=== PATIENT | male | born 1965 ===

== ENCOUNTER 2017-05-05 23:23 | Inpatient (IN) | payer BC ==
[2017-05-06] MEDS: SOD CHLORIDE 0.9% 1,000 ML IV ×5 (00:05→07:45)
[2017-05-06] MEDS: SODIUM CHLORIDE 0.9% 1L BAG IV* (00:05)
[2017-05-06 00:21] LABS: ABNORMAL IP MESSAGE 1; HEMATOCRIT 17.6 % (42.0-52.0); MEAN CORPUSCULAR HEMOGLOBIN 29.9 pg (29.0-33.0); MEAN CORPUSCULAR VOLUME 90.7 fl (82.0-101.0); MEAN PLATELET VOLUME 9.6 fl (7.4-10.4); PLATELET COUNT 58 10^3/UL (140-415); POSITIVE DIFF @See below; RED BLOOD COUNT 1.94 10^6/ul (4.70-6.10); RED CELL DISTRIBUTION WIDTH 17.1 % (11.5-14.5)
[2017-05-06 00:21] LABS: WHITE BLOOD COUNT 0.4 10^3/ul (4.8-10.8)
[2017-05-06 00:28] LABS: ADD MAN DIFF? YES; HEMOGLOBIN 5.8 g/dl (14.0-18.0)
[2017-05-06 00:29] LABS: PATH REVIEW? YES
[2017-05-06] MEDS: AZTREONAM 1 GM/NS (PMX) 50 ML IVPB (00:30)
[2017-05-06 00:39] LABS: ALANINE AMINOTRANSFERASE 82 IU/L (13-69); ALBUMIN 3.2 g/dl (3.3-4.9); ALBUMIN/GLOBULIN RATIO 1.18; ALKALINE PHOSPHATASE 108 IU/L (42-121); ANION GAP 13 (8-16); ASPARTATE AMINO TRANSFERASE 88 IU/L (15-46); BILIRUBIN,INDIRECT 1.9 mg/dl (0-1.1); BILIRUBIN,TOTAL 1.9 mg/dl (0.2-1.3); BLOOD UREA NITROGEN 24 mg/dl (7-20); CALCIUM 9.1 mg/dl (8.4-10.2); CARBON DIOXIDE 20 mmol/L (21-31); CHLORIDE 104 mmol/L (97-110); CREATININE 0.84 mg/dl (0.61-1.24); GLUCOSE 170 mg/dl (70-220); POTASSIUM 3.2 mmol/L (3.5-5.1); SODIUM 134 mmol/L (135-144); TOTAL PROTEIN 5.9 g/dl (6.1-8.1)
[2017-05-06 00:46] LABS: INR 1.02; PROTIME 13.5 Sec (11.9-14.9); PT RATIO 1.1
[2017-05-06 00:47] LABS: PARTIAL THROMBOPLASTIN TIME 22.5 Sec (25.0-35.0)
[2017-05-06 00:50] LABS: TROPONIN-I 0.047 ng/ml (0.00-0.12)
[2017-05-06 00:56] LABS: LACTIC ACID 3.3 mmol/L (0.5-2.0)
[2017-05-06] MEDS: VANCOMYCIN 1 GM (PMX) 250 ML IVPB (01:00)
[2017-05-06] MEDS: IBUPROFEN 600 MG TAB PO (01:16)
[2017-05-06] MEDS ORDERED: LORAZEPAM 2 MG INJ IV (01:30)
[2017-05-06 01:35] LABS: ANISOCYTOSIS 3+ (0-0); ERYTHROBLAST% (NRBC) (M) 2 % (0-0); LYMPHOCYTES #M 0.4 10^3/ul (0.8-2.9); LYMPHOCYTES % (M) 100 % (15-51); MICROCYTOSIS 3+ (0-0); PLATELET ESTIMATE DECREASED; POIKILOCYTOSIS 2+ (0-0); POLYCHROMASIA 3+ (0-0); SMUDGE%M 4 % (0-0)
[2017-05-06] MEDS: NORepinephrine 8MG/250 ML (PMX 250 ML IV ×3 (02:10→10:56)
[2017-05-06] MEDS ORDERED: PROPOFOL 100 ML (02:11)
[2017-05-06] MEDS ORDERED: LORAZEPAM 2 MG INJ (02:22)
[2017-05-06] MEDS ORDERED: VANCOMYCIN IV PER PHARMACY XX (02:30)
[2017-05-06 03:25] LABS: LACTIC ACID 6.5 mmol/L (0.5-2.0)
[2017-05-06] MEDS: IOHEXOL 350MG/ML 50 ML BTL (03:31)
[2017-05-06] MEDS: IOHEXOL 100 ML (03:32)
[2017-05-06] MEDS: SOD CHLORIDE 0.9% 100 ML (03:32)
[2017-05-06] MEDS ORDERED: PHENYLephrine 40 MG in DEXTROSE 5% 496 ML IV (04:00)
[2017-05-06] MEDS: PROPOFOL 100 ML IV ×5 (04:11→20:12)
[2017-05-06] MEDS: SOD CHLORIDE 0.9% 500 ML IV (04:30)
[2017-05-06] MEDS ORDERED: PROPOFOL 100 ML IV (04:30)
[2017-05-06] MEDS: POTASSIUM CHLORIDE 50 ML IVPB ×4 (05:42→09:17)
[2017-05-06 05:44] LABS: HEMATOCRIT 20.2 % (42.0-52.0); HEMOGLOBIN 7.1 g/dl (14.0-18.0)
[2017-05-06 05:47] LABS: RETICULOCYTE RBC 1.87
[2017-05-06 05:47] LABS: RETICULOCYTE COUNT # 0.016 X10^6 (0.020-0.110); RETICULOCYTE COUNT % 0.9 % (0.5-1.5)
[2017-05-06 05:59] LABS: AADO2 Arterial 184.2 mmHg (7.0-24.0); Allen Test ACCEPTAB; Arterial Base Excess -8.7 mmol/L (-3.0-3); Arterial COHb 0.3 % (0.0-3.0); Arterial Fraction of Oxyhgb 97.5 % (93.0-99.0); Arterial HCO3 14.1 mmol/L (22.0-26.0); Arterial MetHb 1.2 % (0.0-1.5); Arterial Total Hemglobin 7.9 g/dl (12.0-18.0); Arterial pCO2 20.8 mmhg (35-45); MODE VENT - AC; Site Left Radial
[2017-05-06 06:18] LABS: LACTATE DEHYDROGENASE 1917 IU/L (313-618)
[2017-05-06] MEDS: MIDAZOLAM (DRIP) 50 mg/50 mL 50 ML IV ×3 (06:33→16:58)
[2017-05-06 06:56] LABS: LACTIC ACID 3.6 mmol/L (0.5-2.0)
[2017-05-06 07:15] LABS: ADD UMIC YES; UR AMORPHOUS CRYSTAL FEW /HPF (NONE SEEN); UR ASCORBIC ACID NEGATIVE (NEGATIVE); UR BILIRUBIN (Dip) NEGATIVE (NEGATIVE); UR BLOOD (Dip) 1+ mg/dL (NEGATIVE); UR CLARITY CLOUDY (CLEAR); UR COLOR AMBER (YELLOW); UR GLUCOSE (Dip) NEGATIVE (NEGATIVE); UR GRANULAR CAST FEW /HPF (NONE SEEN); UR KETONES (Dip) NEGATIVE (NEGATIVE); UR LEUKOCYTE ESTERASE (Dip) NEGATIVE Leu/ul (NEGATIVE); UR NITRITE (Dip) NEGATIVE (NEGATIVE); UR RBC 2 /HPF (0-5); UR SPECIFIC GRAVITY (Dip) 1.029 (1.003-1.030); UR TOTAL PROTEIN (Dip) 2+ mg/dl (NEGATIVE); UR UROBILINOGEN (Dip) NEGATIVE (NEGATIVE); UR WBC 2 /HPF (0-5)
[2017-05-06] MEDS ORDERED: POTASSIUM CHLORIDE 0 ML (07:43)
[2017-05-06] MEDS: PANTOPRAZOLE 40 MG INJ IV (07:45)
[2017-05-06] MEDS: ACETAMINOPHEN 1000MG/100ML IV 100 ML IVPB (08:46)
[2017-05-06] MEDS ORDERED: AZTREONAM 2 GM in DEXTROSE 5% 100 ML IVPB (09:00)
[2017-05-06 09:13] LABS: ADD MAN DIFF? NO
[2017-05-06] MEDS: VANCOMYCIN 1.25 GM in SOD CHLORIDE 0.45% 250 ML IVPB ×2 (09:34→21:09)
[2017-05-06 09:51] LABS: AADO2 Arterial 139.1 mmHg (7.0-24.0); Allen Test ACCEPTAB; Arterial Base Excess -12.7 mmol/L (-3.0-3); Arterial Blood Gas Oxygen Sat 98.3 mmHG (95.0-98.0); Arterial COHb 0.3 % (0.0-3.0); Arterial Fraction of Oxyhgb 96.4 % (93.0-99.0); Arterial HCO3 12.1 mmol/L (22.0-26.0); Arterial MetHb 1.6 % (0.0-1.5); Arterial Total Hemglobin 8.4 g/dl (12.0-18.0); Arterial pCO2 24.1 mmhg (35-45); MODE VENT - AC; Site Left Radial
[2017-05-06 10:02] LABS: ABNORMAL IP MESSAGE 1; LYMPHOCYTES # 0.5 10^3/ul (0.8-2.9); MONOCYTES % 1.9 % (0.0-11.0); RED BLOOD COUNT 2.41 10^6/ul (4.70-6.10)
[2017-05-06 10:02] LABS: WHITE BLOOD COUNT 0.5 10^3/ul (4.8-10.8)
[2017-05-06 10:05] LABS: HEMATOCRIT 21.4 % (42.0-52.0); HEMOGLOBIN 7.8 g/dl (14.0-18.0); LYMPHOCYTES % 96.2 % (15.0-51.0); MEAN CORPUSCULAR HEMOGLOBIN 32.4 pg (29.0-33.0); MEAN CORPUSCULAR HGB CONC 36.4 g/dl (32.0-37.0); MEAN CORPUSCULAR VOLUME 88.8 fl (82.0-101.0); MEAN PLATELET VOLUME 10.5 fl (7.4-10.4); NEUTROPHILS % 1.9 % (39.0-77.0); NUCLEATED RED BLOOD CELLS% 7.5 /100WBC (0.0-0.0); PLATELET COUNT 58 10^3/UL (140-415); POSITIVE DIFF @See below; RED CELL DISTRIBUTION WIDTH 15.9 % (11.5-14.5)
[2017-05-06 10:07] LABS: LACTIC ACID 3.9 mmol/L (0.5-2.0)
[2017-05-06] MEDS: CEFEPIME 2GM/50 ML (PMX) 50 ML IVPB (11:41)
[2017-05-06 11:49] LABS: ALANINE AMINOTRANSFERASE 142 IU/L (13-69); ALBUMIN 3.5 g/dl (3.3-4.9); ALBUMIN/GLOBULIN RATIO 1.02; ALKALINE PHOSPHATASE 79 IU/L (42-121); ANION GAP 18 (8-16); ASPARTATE AMINO TRANSFERASE 390 IU/L (15-46); BLOOD UREA NITROGEN 32 mg/dl (7-20); CARBON DIOXIDE 14 mmol/L (21-31); CHLORIDE 113 mmol/L (97-110); CREATININE 1.11 mg/dl (0.61-1.24); GLUCOSE 114 mg/dl (70-220); SODIUM 140 mmol/L (135-144); TOTAL PROTEIN 6.9 g/dl (6.1-8.1)
[2017-05-06] MEDS: MEROPENEM 1 GM/50ML(PMX) 50 ML IVPB ×2 (12:09→22:20)
[2017-05-06] MEDS: LACTATED RINGER'S 1,000 ML IV ×3 (12:12→20:17)
[2017-05-06] MEDS: HYDROCORTISONE 100 MG INJ IV ×2 (13:20→21:30)
[2017-05-06] MEDS: FENTAnyl (DRIP) 1000 mcg/100mL 100 ML IV (13:21)
[2017-05-06 14:19] LABS: WHITE BLOOD COUNT 0.5 10^3/ul (4.8-10.8)
[2017-05-06 14:19] LABS: ABNORMAL IP MESSAGE 1; HEMATOCRIT 20.8 % (42.0-52.0); HEMOGLOBIN 7.8 g/dl (14.0-18.0); MEAN CORPUSCULAR VOLUME 90.4 fl (82.0-101.0); MEAN PLATELET VOLUME 9.9 fl (7.4-10.4); NUCLEATED RED BLOOD CELLS% 4.3 /100WBC (0.0-0.0); PLATELET COUNT 39 10^3/UL (140-415); POSITIVE DIFF @See below; RED CELL DISTRIBUTION WIDTH 16.5 % (11.5-14.5)
[2017-05-06 14:25] LABS: ADD MAN DIFF? YES
[2017-05-06] MEDS: LACTATED RINGER'S 500 ML IV ×2 (14:41→15:01)
[2017-05-06 14:43] LABS: LACTIC ACID 5.1 mmol/L (0.5-2.0)
[2017-05-06] MEDS ORDERED: LACTATED RINGER'S 1,000 ML IV (15:00)
[2017-05-06 15:11] LABS: LYMPHOCYTES # 0.5 10^3/ul (0.8-2.9); LYMPHOCYTES #M 0.4 10^3/ul (0.8-2.9); LYMPHOCYTES % (M) 99 % (15-51)
[2017-05-06 15:14] LABS: ANISOCYTOSIS 3+ (0-0)
[2017-05-06 15:15] LABS: MEAN CORPUSCULAR HEMOGLOBIN 31.1 pg (29.0-33.0); MEAN CORPUSCULAR HGB CONC 35.3 g/dl (32.0-37.0); SPHEROCYTES MODERATE (0-0)
[2017-05-06] MEDS: FILGRASTIM 480 MCG INJ SC (16:57)
[2017-05-06] MEDS: PHENYLephrine 20MG IN 250 ML 250 ML IV (20:00)
[2017-05-06 21:02] LABS: WHITE BLOOD COUNT 0.4 10^3/ul (4.8-10.8)
[2017-05-06 21:02] LABS: ABNORMAL IP MESSAGE 1; MEAN CORPUSCULAR VOLUME 88.1 fl (82.0-101.0); MEAN PLATELET VOLUME 12.6 fl (7.4-10.4); NUCLEATED RED BLOOD CELLS% 4.8 /100WBC (0.0-0.0); PLATELET COUNT 35 10^3/UL (140-415); POSITIVE DIFF @See below; RED BLOOD COUNT 2.26 10^6/ul (4.70-6.10); RED CELL DISTRIBUTION WIDTH 16.8 % (11.5-14.5)
[2017-05-06 21:13] LABS: ADD MAN DIFF? YES
[2017-05-06 21:36] LABS: ALANINE AMINOTRANSFERASE 269 IU/L (13-69); ALBUMIN 3.5 g/dl (3.3-4.9); ALBUMIN/GLOBULIN RATIO 1.09; ALKALINE PHOSPHATASE 94 IU/L (42-121); ANION GAP 20 (8-16); ASPARTATE AMINO TRANSFERASE 695 IU/L (15-46); BILIRUBIN,INDIRECT 0.8 mg/dl (0-1.1); BILIRUBIN,TOTAL 6.6 mg/dl (0.2-1.3); BLOOD UREA NITROGEN 28 mg/dl (7-20); CALCIUM 8.7 mg/dl (8.4-10.2); CARBON DIOXIDE 13 mmol/L (21-31); CHLORIDE 116 mmol/L (97-110); GLUCOSE 152 mg/dl (70-220); POTASSIUM 4.8 mmol/L (3.5-5.1); SODIUM 144 mmol/L (135-144); TOTAL PROTEIN 6.7 g/dl (6.1-8.1)
[2017-05-06 21:51] LABS: ANISOCYTOSIS 3+ (0-0); ERYTHROBLAST% (NRBC) (M) 8 % (0-0); LYMPHOCYTES #M 0.3 10^3/ul (0.8-2.9); LYMPHOCYTES % (M) 99 % (15-51); MICROCYTOSIS 3+ (0-0); MONOCYTES % (M) 1 % (0-11); PLATELET ESTIMATE SIG DECREASED; POIKILOCYTOSIS 3+ (0-0); POLYCHROMASIA 1+ (0-0); SMUDGE%M 51 % (0-0); TEAR DROP CELLS 1+ (0-0)
[2017-05-06 22:11] LABS: HEMOGLOBIN 7.4 g/dl (14.0-18.0); MEAN CORPUSCULAR HEMOGLOBIN 31.2 pg (29.0-33.0)
[2017-05-06 22:12] LABS: MEAN CORPUSCULAR HGB CONC 35.2 g/dl (32.0-37.0)
[2017-05-06] MEDS: PHENYLephrine 40 MG in DEXTROSE 5% 496 ML IV (23:45)
[2017-05-07] MEDS: PROPOFOL 100 ML IV ×2 (02:31→06:53)
[2017-05-07] MEDS: MIDAZOLAM (DRIP) 50 mg/50 mL 50 ML IV ×2 (02:44→15:25)
[2017-05-07] MEDS: LACTATED RINGER'S 1,000 ML IV ×4 (02:48→19:58)
[2017-05-07 05:17] LABS: AADO2 Arterial 48.2 mmHg (7.0-24.0); Allen Test ACCEPTAB; Arterial Base Excess -12.3 mmol/L (-3.0-3); Arterial Blood Gas Oxygen Sat 98.6 mmHG (95.0-98.0); Arterial COHb 0.6 % (0.0-3.0); Arterial Fraction of Oxyhgb 96.9 % (93.0-99.0); Arterial HCO3 11.4 mmol/L (22.0-26.0); Arterial MetHb 1.1 % (0.0-1.5); Arterial Total Hemglobin 7.2 g/dl (12.0-18.0); Arterial pCO2 19.6 mmhg (35-45); MODE VENT - AC; Site Right Radial
[2017-05-07 05:46] LABS: PHOSPHORUS 5.3 mg/dl (2.5-4.9)
[2017-05-07 05:46] LABS: MAGNESIUM 1.3 mg/dl (1.7-2.5)
[2017-05-07] MEDS: HYDROCORTISONE 100 MG INJ IV ×3 (05:51→22:08)
[2017-05-07] MEDS: PANTOPRAZOLE 40 MG INJ IV (05:51)
[2017-05-07] MEDS: MEROPENEM 1 GM/50ML(PMX) 50 ML IVPB ×3 (05:51→22:08)
[2017-05-07 05:57] LABS: LACTIC ACID 5.9 mmol/L (0.5-2.0)
[2017-05-07] MEDS: FENTAnyl (DRIP) 1000 mcg/100mL 100 ML IV (06:16)
[2017-05-07 06:32] LABS: ADD UMIC YES; UR ASCORBIC ACID NEGATIVE (NEGATIVE); UR BACTERIA FEW /HPF (NONE SEEN); UR BILIRUBIN (Dip) NEGATIVE (NEGATIVE); UR BLOOD (Dip) 3+ mg/dL (NEGATIVE); UR CLARITY CLEAR (CLEAR); UR COLOR AMBER (YELLOW); UR GLUCOSE (Dip) NEGATIVE (NEGATIVE); UR KETONES (Dip) NEGATIVE (NEGATIVE); UR LEUKOCYTE ESTERASE (Dip) NEGATIVE Leu/ul (NEGATIVE); UR NITRITE (Dip) NEGATIVE (NEGATIVE); UR RBC 1 /HPF (0-5); UR SPECIFIC GRAVITY (Dip) 1.006 (1.003-1.030); UR TOTAL PROTEIN (Dip) 2+ mg/dl (NEGATIVE); UR UROBILINOGEN (Dip) NEGATIVE (NEGATIVE); UR WBC 1 /HPF (0-5)
[2017-05-07] MEDS: ALBUMIN HUMAN 25% 100 ML IV ×2 (06:48→18:21)
[2017-05-07] MEDS ORDERED: MAGNESIUM SULFATE 1 GM/D5W 100 ML (07:31)
[2017-05-07] MEDS ORDERED: PHENYLephrine 20MG IN 250 ML 250 ML (07:42)
[2017-05-07 08:25] LABS: HEPATITIS B SURFACE ANTIGEN NEGATIVE (NEGATIVE)
[2017-05-07 08:26] LABS: ANION GAP 21 (8-16); BLOOD UREA NITROGEN 26 mg/dl (7-20); CALCIUM 8.8 mg/dl (8.4-10.2); CARBON DIOXIDE 11 mmol/L (21-31); CHLORIDE 119 mmol/L (97-110); CREATININE 0.98 mg/dl (0.61-1.24); GLUCOSE 193 mg/dl (70-220); POTASSIUM 4.6 mmol/L (3.5-5.1); SODIUM 146 mmol/L (135-144)
[2017-05-07 08:43] LABS: HEPATITIS B CORE ANTIBODY NEGATIVE (NEGATIVE)
[2017-05-07] MEDS: MAGNESIUM SULFATE 3 GM in DEXTROSE 5% 100 ML IVPB (09:21)
[2017-05-07] MEDS: VANCOMYCIN 1.25 GM in SOD CHLORIDE 0.45% 250 ML IVPB ×2 (09:26→20:59)
[2017-05-07 09:51] LABS: WHITE BLOOD COUNT 0.3 10^3/ul (4.8-10.8)
[2017-05-07 09:51] LABS: ABNORMAL IP MESSAGE 1; HEMATOCRIT 17.6 % (42.0-52.0); MEAN CORPUSCULAR HEMOGLOBIN 30.7 pg (29.0-33.0); MEAN CORPUSCULAR HGB CONC 35.8 g/dl (32.0-37.0); MEAN CORPUSCULAR VOLUME 85.9 fl (82.0-101.0); NUCLEATED RED BLOOD CELLS% 7.4 /100WBC (0.0-0.0); POSITIVE DIFF @See below; RED BLOOD COUNT 2.05 10^6/ul (4.70-6.10); RED CELL DISTRIBUTION WIDTH 16.8 % (11.5-14.5)
[2017-05-07 09:55] LABS: HEPATITIS B SURFACE ANTIBODY POSITIVE (NEGATIVE)
[2017-05-07 09:58] LABS: HEMOGLOBIN 6.3 g/dl (14.0-18.0); PLATELET COUNT 17 10^3/UL (140-415)
[2017-05-07 09:59] LABS: ADD MAN DIFF? YES
[2017-05-07 11:30] LABS: ANISOCYTOSIS 3+ (0-0); ERYTHROBLAST% (NRBC) (M) 4 % (0-0); LYMPHOCYTES #M 0.2 10^3/ul (0.8-2.9); LYMPHOCYTES % (M) 98 % (15-51); METAMYELOCYTES %M 1 % (0-0); MICROCYTOSIS 3+ (0-0); MONOCYTES % (M) 1 % (0-11); MYELOCYTES % (M) 1 % (0-0); PLATELET ESTIMATE SIG DECREASED; POIKILOCYTOSIS 3+ (0-0); POLYCHROMASIA 3+ (0-0); SMUDGE%M 10 % (0-0)
[2017-05-07] MEDS: PHENYLephrine 40 MG in DEXTROSE 5% 496 ML IV ×2 (11:31→19:14)
[2017-05-07 14:24] LABS: ALANINE AMINOTRANSFERASE 680 IU/L (13-69); ALBUMIN 3.1 g/dl (3.3-4.9); ALBUMIN/GLOBULIN RATIO 1.03; ALKALINE PHOSPHATASE 69 IU/L (42-121); ANION GAP 18 (8-16); BILIRUBIN,INDIRECT 0.9 mg/dl (0-1.1); BILIRUBIN,TOTAL 7.4 mg/dl (0.2-1.3); BLOOD UREA NITROGEN 25 mg/dl (7-20); CARBON DIOXIDE 15 mmol/L (21-31); CHLORIDE 115 mmol/L (97-110); CREATININE 0.88 mg/dl (0.61-1.24); GLUCOSE 252 mg/dl (70-220); POTASSIUM 3.9 mmol/L (3.5-5.1); SODIUM 144 mmol/L (135-144); TOTAL PROTEIN 6.1 g/dl (6.1-8.1)
[2017-05-07 14:54] LABS: IMMEDIATE SPIN CROSSMATCH 1 9
[2017-05-07 15:40] LABS: ASPARTATE AMINO TRANSFERASE 1920 IU/L (15-46)
[2017-05-07 15:47] LABS: PATH REVIEW CH
[2017-05-07 16:03] LABS: MAGNESIUM 2.2 mg/dl (1.7-2.5)
[2017-05-07] MEDS: FILGRASTIM 480 MCG INJ SC (17:01)
[2017-05-07 18:21] LABS: AADO2 Arterial 92.1 mmHg (7.0-24.0); Allen Test ACCEPTAB; Arterial Base Excess -8.8 mmol/L (-3.0-3); Arterial Blood Gas Oxygen Sat 96.5 mmHG (95.0-98.0); Arterial COHb 0.3 % (0.0-3.0); Arterial Fraction of Oxyhgb 95.6 % (93.0-99.0); Arterial MetHb 0.6 % (0.0-1.5); Arterial Total Hemglobin 10.8 g/dl (12.0-18.0); Arterial pCO2 26.4 mmhg (35-45); MODE VENT - AC; Site Left Radial
[2017-05-07 21:31] LABS: WHITE BLOOD COUNT 0.2 10^3/ul (4.8-10.8)
[2017-05-07 21:31] LABS: ABNORMAL IP MESSAGE 1; POSITIVE DIFF @See below; RED BLOOD COUNT 2.72 10^6/ul (4.70-6.10)
[2017-05-07 21:32] LABS: HEMATOCRIT 23.3 % (42.0-52.0); MEAN CORPUSCULAR VOLUME 87.3 fl (82.0-101.0)
[2017-05-07 21:33] LABS: MEAN CORPUSCULAR HEMOGLOBIN 30.7 pg (29.0-33.0); MEAN CORPUSCULAR HGB CONC 35.2 g/dl (32.0-37.0); RED CELL DISTRIBUTION WIDTH 15.4 % (11.5-14.5)
[2017-05-07 21:35] LABS: ADD MAN DIFF? YES; PLATELET COUNT 8 10^3/UL (140-415)
[2017-05-07 21:40] LABS: HEMOGLOBIN 8.2 g/dl (14.0-18.0)
[2017-05-07 21:44] LABS: VANCOMYCIN,TROUGH 19.9 ug/ml (10.0-20.0)
[2017-05-07 21:54] LABS: ALANINE AMINOTRANSFERASE 677 IU/L (13-69); ALBUMIN 3.4 g/dl (3.3-4.9); ALBUMIN/GLOBULIN RATIO 1.21; ANION GAP 17 (8-16); BILIRUBIN,INDIRECT 1.1 mg/dl (0-1.1); BLOOD UREA NITROGEN 25 mg/dl (7-20); CALCIUM 8.7 mg/dl (8.4-10.2); CARBON DIOXIDE 17 mmol/L (21-31); CHLORIDE 112 mmol/L (97-110); CREATININE 0.82 mg/dl (0.61-1.24); GLUCOSE 206 mg/dl (70-220); POTASSIUM 3.6 mmol/L (3.5-5.1); SODIUM 142 mmol/L (135-144); TOTAL PROTEIN 6.2 g/dl (6.1-8.1)
[2017-05-07 21:55] LABS: ALKALINE PHOSPHATASE 75 IU/L (42-121)
[2017-05-07 22:04] LABS: ASPARTATE AMINO TRANSFERASE 1498 IU/L (15-46)
[2017-05-07 22:14] LABS: LYMPHOCYTES # 0.2 10^3/ul (0.8-2.9); LYMPHOCYTES #M 0.1 10^3/ul (0.8-2.9); LYMPHOCYTES % (M) 95 % (15-51); MONOCYTES % (M) 5 % (0-11)
[2017-05-08] MEDS: PHENYLephrine 40 MG in DEXTROSE 5% 496 ML IV (00:57)
[2017-05-08 01:05] LABS: TYPE AND SCREEN 1
[2017-05-08] MEDS: FENTAnyl (DRIP) 1000 mcg/100mL 100 ML IV ×2 (01:46→16:03)
[2017-05-08] MEDS: LACTATED RINGER'S 1,000 ML IV ×3 (02:48→22:21)
[2017-05-08] MEDS: PHENYLephrine 160 MG in DEXTROSE 5% 484 ML IV (03:09)
[2017-05-08 04:45] LABS: INR 1.44; PROTIME 17.8 Sec (11.9-14.9); PT RATIO 1.4
[2017-05-08 04:57] LABS: ALBUMIN/GLOBULIN RATIO 1.23; ANION GAP 17 (8-16)
[2017-05-08 05:04] LABS: ALANINE AMINOTRANSFERASE 672 IU/L (13-69); ALBUMIN 3.2 g/dl (3.3-4.9); ALKALINE PHOSPHATASE 75 IU/L (42-121); ASPARTATE AMINO TRANSFERASE 1419 IU/L (15-46); BILIRUBIN,INDIRECT 1.1 mg/dl (0-1.1); BILIRUBIN,TOTAL 8.1 mg/dl (0.2-1.3); BLOOD UREA NITROGEN 23 mg/dl (7-20); CALCIUM 8.7 mg/dl (8.4-10.2); CARBON DIOXIDE 18 mmol/L (21-31); CHLORIDE 111 mmol/L (97-110); CREATININE 0.75 mg/dl (0.61-1.24); GLUCOSE 155 mg/dl (70-220); POTASSIUM 3.1 mmol/L (3.5-5.1); SODIUM 143 mmol/L (135-144); TOTAL PROTEIN 5.8 g/dl (6.1-8.1)
[2017-05-08 05:09] LABS: LACTIC ACID 3.6 mmol/L (0.5-2.0)
[2017-05-08 05:15] LABS: LACTATE DEHYDROGENASE 9076 IU/L (313-618)
[2017-05-08] MEDS: MEROPENEM 1 GM/50ML(PMX) 50 ML IVPB ×3 (05:22→21:14)
[2017-05-08] MEDS: HYDROCORTISONE 100 MG INJ IV ×3 (05:22→21:14)
[2017-05-08] MEDS: PANTOPRAZOLE 40 MG INJ IV (05:22)
[2017-05-08 05:23] LABS: PHOSPHORUS 3.9 mg/dl (2.5-4.9)
[2017-05-08 05:23] LABS: MAGNESIUM 1.8 mg/dl (1.7-2.5)
[2017-05-08] MEDS: MIDAZOLAM (DRIP) 50 mg/50 mL 50 ML IV ×2 (06:01→19:58)
[2017-05-08] MEDS: MAGNESIUM SULFATE 2 GM/50 ML 50 ML IVPB (06:01)
[2017-05-08] MEDS: POTASSIUM CHLORIDE 50 ML IVPB ×2 (06:28→08:57)
[2017-05-08 07:34] LABS: ABNORMAL IP MESSAGE 1; HEMATOCRIT 21.9 % (42.0-52.0); MEAN CORPUSCULAR HEMOGLOBIN 30.7 pg (29.0-33.0); MEAN CORPUSCULAR HGB CONC 36.1 g/dl (32.0-37.0); MEAN CORPUSCULAR VOLUME 85.2 fl (82.0-101.0); MEAN PLATELET VOLUME 9.6 fl (7.4-10.4); POSITIVE DIFF @See below; RED BLOOD COUNT 2.57 10^6/ul (4.70-6.10); RED CELL DISTRIBUTION WIDTH 15.8 % (11.5-14.5)
[2017-05-08 07:34] LABS: WHITE BLOOD COUNT 0.2 10^3/ul (4.8-10.8)
[2017-05-08 07:36] LABS: HEMOGLOBIN 7.9 g/dl (14.0-18.0); PLATELET COUNT 50 10^3/UL (140-415)
[2017-05-08 07:37] LABS: ADD MAN DIFF? YES
[2017-05-08 08:31] LABS: AADO2 Arterial 100.8 mmHg (7.0-24.0); Allen Test ACCEPTAB; Arterial COHb 0.3 % (0.0-3.0); Arterial Fraction of Oxyhgb 93.9 % (93.0-99.0); Arterial HCO3 18.4 mmol/L (22.0-26.0); Arterial MetHb 0.9 % (0.0-1.5); Arterial Total Hemglobin 7.6 g/dl (12.0-18.0); Arterial pCO2 27.6 mmhg (35-45); MODE VENT - AC; Site Right Radial
[2017-05-08 09:47] LABS: ANISOCYTOSIS 2+ (0-0); ERYTHROBLAST% (NRBC) (M) 5 % (0-0); GIANT THROMBO% (M) 1 % (0-0); LYMPHOCYTES #M 0.1 10^3/ul (0.8-2.9); LYMPHOCYTES % (M) 99 % (15-51); MICROCYTOSIS 2+ (0-0); PLATELET ESTIMATE SIG DECREASED; POIKILOCYTOSIS 3+ (0-0); POLYCHROMASIA 3+ (0-0); REACTIVE LYMPHOCYTES% (M) 1 % (0-0); SMUDGE%M 16 % (0-0)
[2017-05-08 09:50] LABS: ADD MAN DIFF? NO
[2017-05-08 10:18] LABS: ABNORMAL IP MESSAGE 1; LYMPHOCYTES # 0.1 10^3/ul (0.8-2.9); MONOCYTES % 10.5 % (0.0-11.0); NEUTROPHILS % 15.8 % (39.0-77.0); POSITIVE DIFF @See below
[2017-05-08 10:22] LABS: WHITE BLOOD COUNT 0.2 10^3/ul (4.8-10.8)
[2017-05-08 10:25] LABS: HEMATOCRIT 20.3 % (42.0-52.0); HEMOGLOBIN 7.9 g/dl (14.0-18.0); LYMPHOCYTES % 73.7 % (15.0-51.0); MEAN CORPUSCULAR HEMOGLOBIN 32.6 pg (29.0-33.0); MEAN CORPUSCULAR HGB CONC 38.9 g/dl (32.0-37.0); MEAN CORPUSCULAR VOLUME 83.9 fl (82.0-101.0); MEAN PLATELET VOLUME 11.9 fl (7.4-10.4); RED BLOOD COUNT 2.42 10^6/ul (4.70-6.10); RED CELL DISTRIBUTION WIDTH 15.8 % (11.5-14.5)
[2017-05-08 10:27] LABS: PLATELET COUNT 30 10^3/UL (140-415)
[2017-05-08] MEDS: FUROSEMIDE 40 MG INJ IV (12:22)
[2017-05-08 13:09] LABS: LACTIC ACID 1.7 mmol/L (0.5-2.0)
[2017-05-08 14:17] LABS: HAPTOGLOBIN 331 mg/dL (43-212)
[2017-05-08] MEDS: VANCOMYCIN 750 MG in DEXTROSE 5% 150 ML IVPB (15:12)
[2017-05-08 15:15] LABS: ADD MAN DIFF? NO
[2017-05-08 15:58] LABS: WHITE BLOOD COUNT 0.2 10^3/ul (4.8-10.8)
[2017-05-08 15:58] LABS: ABNORMAL IP MESSAGE 1; HEMATOCRIT 22.1 % (42.0-52.0); LYMPHOCYTES # 0.2 10^3/ul (0.8-2.9); MEAN CORPUSCULAR HEMOGLOBIN 30.8 pg (29.0-33.0); MEAN CORPUSCULAR HGB CONC 36.2 g/dl (32.0-37.0); MONOCYTES % 5.3 % (0.0-11.0); POSITIVE DIFF @See below
[2017-05-08 16:07] LABS: LYMPHOCYTES % 94.7 % (15.0-51.0); MEAN PLATELET VOLUME 13.3 fl (7.4-10.4)
[2017-05-08 16:09] LABS: PLATELET COUNT 29 10^3/UL (140-415)
[2017-05-08] MEDS: FILGRASTIM 480 MCG INJ SC (17:18)
[2017-05-08] MEDS: PROPOFOL 100 ML IV (17:28)
[2017-05-08 18:02] LABS: HEPATITIS C VIRAL ANTIBODY NEGATIVE (NEGATIVE)
[2017-05-08 19:20] LABS: LACTIC ACID 1.9 mmol/L (0.5-2.0)
[2017-05-09 01:03] LABS: LACTIC ACID 1.3 mmol/L (0.5-2.0)
[2017-05-09 01:09] LABS: POTASSIUM 2.1 mmol/L (3.5-5.1)
[2017-05-09 01:26] LABS: MAGNESIUM 1.7 mg/dl (1.7-2.5)
[2017-05-09] MEDS: POTASSIUM CHLORIDE 50 ML IVPB ×7 (02:06→13:06)
[2017-05-09] MEDS: MAGNESIUM SULFATE 3 GM in DEXTROSE 5% 100 ML IVPB (03:42)
[2017-05-09] MEDS: PROPOFOL 100 ML IV ×2 (06:00→18:00)
[2017-05-09] MEDS: PANTOPRAZOLE 40 MG INJ IV (06:07)
[2017-05-09] MEDS: HYDROCORTISONE 100 MG INJ IV ×3 (06:07→21:16)
[2017-05-09] MEDS: MEROPENEM 1 GM/50ML(PMX) 50 ML IVPB ×3 (06:07→21:16)
[2017-05-09 08:29] LABS: AADO2 Arterial 32.8 mmHg (7.0-24.0); Allen Test ACCEPTAB; Arterial Base Excess -0.9 mmol/L (-3.0-3); Arterial Blood Gas Oxygen Sat 98.2 mmHG (95.0-98.0); Arterial COHb 0.3 % (0.0-3.0); Arterial Fraction of Oxyhgb 97.6 % (93.0-99.0); Arterial HCO3 22.7 mmol/L (22.0-26.0); Arterial MetHb 0.3 % (0.0-1.5); Arterial Total Hemglobin 9.3 g/dl (12.0-18.0); Arterial pCO2 33.3 mmhg (35-45); MODE VENT - AC; Site Right Radial
[2017-05-09] MEDS: LACTATED RINGER'S 1,000 ML IV ×2 (08:32→18:35)
[2017-05-09 08:46] LABS: WHITE BLOOD COUNT 0.2 10^3/ul (4.8-10.8)
[2017-05-09 08:46] LABS: ABNORMAL IP MESSAGE 1; HEMATOCRIT 22.3 % (42.0-52.0); HEMOGLOBIN 8.1 g/dl (14.0-18.0); MEAN CORPUSCULAR HEMOGLOBIN 30.6 pg (29.0-33.0); MEAN CORPUSCULAR HGB CONC 36.3 g/dl (32.0-37.0); MEAN CORPUSCULAR VOLUME 84.2 fl (82.0-101.0); MEAN PLATELET VOLUME 10.6 fl (7.4-10.4); POSITIVE DIFF @See below; RED BLOOD COUNT 2.65 10^6/ul (4.70-6.10); RED CELL DISTRIBUTION WIDTH 15.9 % (11.5-14.5)
[2017-05-09 08:51] LABS: PLATELET COUNT 9 10^3/UL (140-415)
[2017-05-09 08:53] LABS: ADD MAN DIFF? YES
[2017-05-09 09:03] LABS: PHOSPHORUS 2.9 mg/dl (2.5-4.9)
[2017-05-09 09:03] LABS: MAGNESIUM 2.6 mg/dl (1.7-2.5)
[2017-05-09 09:07] LABS: LACTIC ACID 1.2 mmol/L (0.5-2.0)
[2017-05-09 09:08] LABS: ALANINE AMINOTRANSFERASE 517 IU/L (13-69); ALBUMIN 2.8 g/dl (3.3-4.9); ALBUMIN/GLOBULIN RATIO 1.03; ALKALINE PHOSPHATASE 98 IU/L (42-121); ANION GAP 13 (8-16); ASPARTATE AMINO TRANSFERASE 496 IU/L (15-46); BILIRUBIN,INDIRECT 1.3 mg/dl (0-1.1); BILIRUBIN,TOTAL 8.9 mg/dl (0.2-1.3); BLOOD UREA NITROGEN 30 mg/dl (7-20); CALCIUM 9.6 mg/dl (8.4-10.2); CARBON DIOXIDE 26 mmol/L (21-31); CHLORIDE 110 mmol/L (97-110); CREATININE 0.79 mg/dl (0.61-1.24); GLUCOSE 170 mg/dl (70-220); POTASSIUM 3.2 mmol/L (3.5-5.1); SODIUM 146 mmol/L (135-144); TOTAL PROTEIN 5.5 g/dl (6.1-8.1)
[2017-05-09] MEDS ORDERED: GLUCAGON 1 MG INJ IM (10:30)
[2017-05-09] MEDS ORDERED: GLUCOSE GEL 15 GRAM TUBE PO ×2 (10:30)
[2017-05-09] MEDS: FUROSEMIDE 20 MG INJ IV (10:37)
[2017-05-09 10:52] LABS: HEMOGLOBIN A1C 5.9 % (0-5.9)
[2017-05-09 11:23] LABS: LACTIC ACID 1.2 mmol/L (0.5-2.0)
[2017-05-09] MEDS: INSULIN ASPART [NOVOLOG] 3 ML PEN SC ×3 (12:00→21:37)
[2017-05-09 12:57] LABS: ANISOCYTOSIS 2+ (0-0); ERYTHROBLAST% (NRBC) (M) 6 % (0-0); GIANT THROMBO% (M) 2 % (0-0); LYMPHOCYTES #M 0.1 10^3/ul (0.8-2.9); LYMPHOCYTES % (M) 95 % (15-51); MONOCYTES % (M) 1 % (0-11); PLATELET ESTIMATE DECREASED; POIKILOCYTOSIS 2+ (0-0); REACTIVE LYMPHOCYTES% (M) 4 % (0-0); ROULEAU 1+ (0-0); SMUDGE%M 17 % (0-0)
[2017-05-09 16:41] LABS: MYCOPLASMA PNEUMONIAE AB (IGG) 0.91
[2017-05-09] MEDS: FILGRASTIM 480 MCG INJ SC (17:46)
[2017-05-09 19:35] LABS: LACTIC ACID 1.5 mmol/L (0.5-2.0)
[2017-05-10] MEDS: LACTATED RINGER'S 1,000 ML IV (01:04)
[2017-05-10] MEDS: INSULIN ASPART [NOVOLOG] 3 ML PEN SC ×6 (01:08→21:01)
[2017-05-10 04:43] LABS: ABNORMAL IP MESSAGE 1; HEMATOCRIT 22.9 % (42.0-52.0); HEMOGLOBIN 8.2 g/dl (14.0-18.0); MEAN CORPUSCULAR HEMOGLOBIN 29.9 pg (29.0-33.0); MEAN CORPUSCULAR HGB CONC 35.8 g/dl (32.0-37.0); MEAN CORPUSCULAR VOLUME 83.6 fl (82.0-101.0); MEAN PLATELET VOLUME 9.8 fl (7.4-10.4); POSITIVE DIFF @See below; RED BLOOD COUNT 2.74 10^6/ul (4.70-6.10)
[2017-05-10 04:43] LABS: WHITE BLOOD COUNT 0.3 10^3/ul (4.8-10.8)
[2017-05-10 05:15] LABS: ADD MAN DIFF? YES; PLATELET COUNT 15 10^3/UL (140-415)
[2017-05-10] MEDS: PANTOPRAZOLE 40 MG INJ IV (05:27)
[2017-05-10] MEDS: PROPOFOL 100 ML IV ×2 (05:27→18:00)
[2017-05-10] MEDS: HYDROCORTISONE 100 MG INJ IV ×3 (05:27→21:00)
[2017-05-10] MEDS: MEROPENEM 1 GM/50ML(PMX) 50 ML IVPB ×3 (05:28→21:00)
[2017-05-10 08:47] LABS: ANISOCYTOSIS 2+ (0-0); ERYTHROBLAST% (NRBC) (M) 2 % (0-0); LYMPHOCYTES #M 0.2 10^3/ul (0.8-2.9); LYMPHOCYTES % (M) 91 % (15-51); MICROCYTOSIS 1+ (0-0); PLATELET ESTIMATE SIG DECREASED; POLYCHROMASIA 1+ (0-0); REACTIVE LYMPHOCYTES% (M) 9 % (0-0); SMUDGE%M 15 % (0-0)
[2017-05-10 09:02] LABS: ALANINE AMINOTRANSFERASE 361 IU/L (13-69); ALBUMIN 2.8 g/dl (3.3-4.9); ALKALINE PHOSPHATASE 102 IU/L (42-121); ANION GAP 12 (8-16); ASPARTATE AMINO TRANSFERASE 169 IU/L (15-46); BILIRUBIN,INDIRECT 1.9 mg/dl (0-1.1); BILIRUBIN,TOTAL 9.1 mg/dl (0.2-1.3); BLOOD UREA NITROGEN 35 mg/dl (7-20); CALCIUM 9.6 mg/dl (8.4-10.2); CARBON DIOXIDE 31 mmol/L (21-31); CHLORIDE 109 mmol/L (97-110); CREATININE 0.69 mg/dl (0.61-1.24); GLUCOSE 166 mg/dl (70-220); SODIUM 150 mmol/L (135-144); TOTAL PROTEIN 5.6 g/dl (6.1-8.1)
[2017-05-10 09:09] LABS: POTASSIUM 2.4 mmol/L (3.5-5.1)
[2017-05-10] MEDS: POTASSIUM CHLORIDE 20 MEQ in DEXTROSE 5%-0.45% NACL 1,000 ML IV (10:00)
[2017-05-10] MEDS ORDERED: POTASSIUM CHLORIDE 20 MEQ in DEXTROSE 5% 1,000 ML IV (10:00)
[2017-05-10] MEDS ORDERED: POTASSIUM CHLORIDE 40 MEQ in DEXTROSE 5%-0.45% NACL 1,000 ML IV (10:00)
[2017-05-10] MEDS ORDERED: POTASSIUM CHLORIDE 50 ML IVPB (10:00)
[2017-05-10] MEDS: POTASSIUM CHLORIDE IV ×2 (10:39→17:41)
[2017-05-10] MEDS: DEXTROSE 5% IV ×2 (10:39→17:41)
[2017-05-10] MEDS: D5W + KCL 20 MEQ 1,000 ML IV (13:02)
[2017-05-10] MEDS: FILGRASTIM 480 MCG INJ SC (18:11)
[2017-05-11] MEDS: INSULIN ASPART [NOVOLOG] 3 ML PEN SC ×6 (02:03→21:05)
[2017-05-11] MEDS: D5W + KCL 20 MEQ 1,000 ML IV (04:32)
[2017-05-11] MEDS: PROPOFOL 100 ML IV ×2 (04:37→17:18)
[2017-05-11] MEDS: MEROPENEM 1 GM/50ML(PMX) 50 ML IVPB ×3 (05:19→21:00)
[2017-05-11] MEDS: PANTOPRAZOLE 40 MG INJ IV (05:19)
[2017-05-11] MEDS: HYDROCORTISONE 100 MG INJ IV ×3 (05:19→21:00)
[2017-05-11 05:44] LABS: WHITE BLOOD COUNT 0.6 10^3/ul (4.8-10.8)
[2017-05-11 05:44] LABS: ABNORMAL IP MESSAGE 1; HEMATOCRIT 21.9 % (42.0-52.0); HEMOGLOBIN 7.8 g/dl (14.0-18.0); MEAN CORPUSCULAR HGB CONC 35.6 g/dl (32.0-37.0); MEAN CORPUSCULAR VOLUME 84.2 fl (82.0-101.0); POSITIVE DIFF @See below; RED CELL DISTRIBUTION WIDTH 15.9 % (11.5-14.5)
[2017-05-11 06:17] LABS: ADD MAN DIFF? YES; PLATELET COUNT 4 10^3/UL (140-415)
[2017-05-11 07:47] LABS: ANISOCYTOSIS 1+ (0-0); GIANT THROMBO% (M) 2 % (0-0); LYMPHOCYTES #M 0.5 10^3/ul (0.8-2.9); LYMPHOCYTES % (M) 89 % (15-51); MICROCYTOSIS 1+ (0-0); MONOCYTES % (M) 3 % (0-11); PLATELET ESTIMATE SIG DECREASED; POLYCHROMASIA 1+ (0-0); REACTIVE LYMPHOCYTES% (M) 8 % (0-0); SMUDGE%M 6 % (0-0); TARGET CELLS 1+ (0-0)
[2017-05-11 08:16] LABS: ALANINE AMINOTRANSFERASE 253 IU/L (13-69); ALBUMIN 2.6 g/dl (3.3-4.9); ALKALINE PHOSPHATASE 88 IU/L (42-121); ANION GAP 11 (8-16); ASPARTATE AMINO TRANSFERASE 92 IU/L (15-46); BILIRUBIN,INDIRECT 1.9 mg/dl (0-1.1); BLOOD UREA NITROGEN 33 mg/dl (7-20); CALCIUM 9.1 mg/dl (8.4-10.2); CARBON DIOXIDE 31 mmol/L (21-31); CHLORIDE 108 mmol/L (97-110); CREATININE 0.63 mg/dl (0.61-1.24); GLUCOSE 151 mg/dl (70-220); POTASSIUM 3.1 mmol/L (3.5-5.1); SODIUM 147 mmol/L (135-144); TOTAL PROTEIN 5.2 g/dl (6.1-8.1)
[2017-05-11] MEDS ORDERED: POTASSIUM CHLORIDE 50 ML IVPB (10:00)
[2017-05-11] MEDS ORDERED: POTASSIUM CHLORIDE 40 MEQ in DEXTROSE 5% 250 ML IV (11:00)
[2017-05-11] MEDS: POTASSIUM CHLORIDE 40 MEQ in SOD CHLORIDE 0.9% 250 ML IV (11:22)
[2017-05-11 11:27] LABS: TYPE AND SCREEN 1
[2017-05-11] MEDS: SOD CHLORIDE 0.9% 250 ML IV* (15:59)
[2017-05-11] MEDS: FILGRASTIM 480 MCG INJ SC (17:54)
[2017-05-11 18:03] LABS: ADD UMIC YES; UR ASCORBIC ACID NEGATIVE (NEGATIVE); UR BILIRUBIN (Dip) 1+ mg/dL (NEGATIVE); UR BLOOD (Dip) 1+ mg/dL (NEGATIVE); UR CLARITY CLEAR (CLEAR); UR COLOR AMBER (YELLOW); UR GLUCOSE (Dip) 1+ mg/dL (NEGATIVE); UR KETONES (Dip) NEGATIVE (NEGATIVE); UR LEUKOCYTE ESTERASE (Dip) NEGATIVE Leu/ul (NEGATIVE); UR NITRITE (Dip) NEGATIVE (NEGATIVE); UR RBC 4 /HPF (0-5); UR SPECIFIC GRAVITY (Dip) 1.017 (1.003-1.030); UR TOTAL PROTEIN (Dip) 1+ mg/dl (NEGATIVE); UR UROBILINOGEN (Dip) 2+ mg/dL (NEGATIVE); UR WBC 1 /HPF (0-5)
[2017-05-11] MEDS: D5W-0.45 NACL + KCL 20 MEQ 1,000 ML IV (18:39)
[2017-05-11] MEDS: TPN 1,000 ML IV (18:39)
[2017-05-12] MEDS: INSULIN ASPART [NOVOLOG] 3 ML PEN SC ×6 (01:11→20:51)
[2017-05-12 02:34] LABS: IMMEDIATE SPIN CROSSMATCH 1 3
[2017-05-12] MEDS: HYDROCORTISONE 100 MG INJ IV ×3 (05:14→22:44)
[2017-05-12] MEDS: MEROPENEM 1 GM/50ML(PMX) 50 ML IVPB ×3 (05:14→22:43)
[2017-05-12] MEDS: PANTOPRAZOLE 40 MG INJ IV (05:14)
[2017-05-12] MEDS: PROPOFOL 100 ML IV ×2 (05:20→16:48)
[2017-05-12 06:32] LABS: WHITE BLOOD COUNT 0.9 10^3/ul (4.8-10.8)
[2017-05-12 06:32] LABS: ABNORMAL IP MESSAGE 1; HEMATOCRIT 24.2 % (42.0-52.0); HEMOGLOBIN 8.5 g/dl (14.0-18.0); MEAN CORPUSCULAR HEMOGLOBIN 30.1 pg (29.0-33.0); MEAN CORPUSCULAR HGB CONC 35.1 g/dl (32.0-37.0); MEAN CORPUSCULAR VOLUME 85.8 fl (82.0-101.0); POSITIVE DIFF @See below; RED BLOOD COUNT 2.82 10^6/ul (4.70-6.10); RED CELL DISTRIBUTION WIDTH 15.2 % (11.5-14.5)
[2017-05-12 06:33] LABS: PHOSPHORUS 3.1 mg/dl (2.5-4.9)
[2017-05-12 06:33] LABS: MAGNESIUM 1.4 mg/dl (1.7-2.5)
[2017-05-12 06:34] LABS: ALANINE AMINOTRANSFERASE 174 IU/L (13-69); ALBUMIN 2.3 g/dl (3.3-4.9); ALBUMIN/GLOBULIN RATIO 1.04; ALKALINE PHOSPHATASE 81 IU/L (42-121); ANION GAP 10 (8-16); ASPARTATE AMINO TRANSFERASE 65 IU/L (15-46); BILIRUBIN,INDIRECT 1.7 mg/dl (0-1.1); BILIRUBIN,TOTAL 6.6 mg/dl (0.2-1.3); BLOOD UREA NITROGEN 35 mg/dl (7-20); CALCIUM 8.6 mg/dl (8.4-10.2); CARBON DIOXIDE 29 mmol/L (21-31); CHLORIDE 111 mmol/L (97-110); CREATININE 0.57 mg/dl (0.61-1.24); GLUCOSE 204 mg/dl (70-220); POTASSIUM 3.2 mmol/L (3.5-5.1); SODIUM 147 mmol/L (135-144); TOTAL PROTEIN 4.5 g/dl (6.1-8.1)
[2017-05-12 06:54] LABS: ADD MAN DIFF? YES; PLATELET COUNT 11 10^3/UL (140-415)
[2017-05-12 08:01] LABS: ANISOCYTOSIS 1+ (0-0); LYMPHOCYTES #M 0.8 10^3/ul (0.8-2.9); LYMPHOCYTES % (M) 96 % (15-51); PLATELET ESTIMATE SIG DECREASED; REACTIVE LYMPHOCYTES% (M) 4 % (0-0); SMUDGE%M 22 % (0-0)
[2017-05-12] MEDS: MAGNESIUM SULFATE 3 GM in DEXTROSE 5% 100 ML IVPB (09:37)
[2017-05-12] MEDS: POTASSIUM CHLORIDE 50 ML IVPB (09:37)
[2017-05-12] MEDS: TPN 1,000 ML IV (14:23)
[2017-05-12] MEDS: NPH, HUMAN INSULIN ISOPHANE 3ML VIAL SC ×2 (16:46→22:50)
[2017-05-12] MEDS: FILGRASTIM 480 MCG INJ SC (16:48)
[2017-05-12] MEDS: D5W-0.45 NACL + KCL 20 MEQ 1,000 ML IV (16:48)
[2017-05-12] MEDS ORDERED: INSULIN GLARGINE [LANtus] 3 ML PEN SC (20:00)
[2017-05-12] MEDS: ARTIFICIAL TEARS 15 ML OPH BOTH EYES (20:33)
[2017-05-12] MEDS: INSULIN GLARGINE [LANtus] 3 ML PEN SC (20:51)
[2017-05-13] MEDS: INSULIN ASPART [NOVOLOG] 3 ML PEN SC ×6 (02:05→20:58)
[2017-05-13] MEDS: 1/2 NS + KCL 20 MEQ 1,000 ML IV (03:48)
[2017-05-13] MEDS: MEROPENEM 1 GM/50ML(PMX) 50 ML IVPB ×3 (05:16→21:57)
[2017-05-13] MEDS: HYDROCORTISONE 100 MG INJ IV ×3 (05:16→21:57)
[2017-05-13] MEDS: PANTOPRAZOLE 40 MG INJ IV (05:16)
[2017-05-13] MEDS: NPH, HUMAN INSULIN ISOPHANE 3ML VIAL SC ×3 (05:21→22:01)
[2017-05-13] MEDS: PROPOFOL 100 ML IV ×2 (05:22→17:13)
[2017-05-13 05:33] LABS: WHITE BLOOD COUNT 0.8 10^3/ul (4.8-10.8)
[2017-05-13 05:33] LABS: ABNORMAL IP MESSAGE 1; HEMATOCRIT 25.1 % (42.0-52.0); HEMOGLOBIN 8.8 g/dl (14.0-18.0); MEAN CORPUSCULAR HEMOGLOBIN 30.1 pg (29.0-33.0); MEAN CORPUSCULAR HGB CONC 35.1 g/dl (32.0-37.0); POSITIVE DIFF @See below; RED BLOOD COUNT 2.92 10^6/ul (4.70-6.10); RED CELL DISTRIBUTION WIDTH 14.8 % (11.5-14.5)
[2017-05-13 06:06] LABS: TRIGLYCERIDES 263 mg/dl (0-149)
[2017-05-13 06:11] LABS: ANION GAP 10 (8-16); BLOOD UREA NITROGEN 32 mg/dl (7-20); CALCIUM 8.7 mg/dl (8.4-10.2); CARBON DIOXIDE 31 mmol/L (21-31); CHLORIDE 110 mmol/L (97-110); CREATININE 0.58 mg/dl (0.61-1.24); GLUCOSE 177 mg/dl (70-220); MAGNESIUM 1.6 mg/dl (1.7-2.5); PHOSPHORUS 2.7 mg/dl (2.5-4.9); SODIUM 148 mmol/L (135-144)
[2017-05-13 06:13] LABS: PREALBUMIN 10.5 mg/dl (17.6-36.0)
[2017-05-13 06:33] LABS: POTASSIUM 2.6 mmol/L (3.5-5.1)
[2017-05-13 06:58] LABS: ADD MAN DIFF? YES; PLATELET COUNT 4 10^3/UL (140-415)
[2017-05-13] MEDS: MAGNESIUM SULFATE 2 GM/50 ML 50 ML IVPB (07:42)
[2017-05-13 08:25] LABS: ANISOCYTOSIS 1+ (0-0); LYMPHOCYTES #M 0.7 10^3/ul (0.8-2.9); LYMPHOCYTES % (M) 97 % (15-51); MICROCYTOSIS 1+ (0-0); PLATELET ESTIMATE SIG DECREASED; POLYCHROMASIA 1+ (0-0); REACTIVE LYMPHOCYTES% (M) 3 % (0-0); SMUDGE%M 11 % (0-0)
[2017-05-13 08:40] LABS: AADO2 Arterial 40.4 mmHg (7.0-24.0); Allen Test ACCEPTAB; Arterial Base Excess 6.2 mmol/L (-3.0-3); Arterial Blood Gas Oxygen Sat 98.2 mmHG (95.0-98.0); Arterial COHb 0.3 % (0.0-3.0); Arterial Fraction of Oxyhgb 97.7 % (93.0-99.0); Arterial HCO3 27.8 mmol/L (22.0-26.0); Arterial MetHb 0.2 % (0.0-1.5); Arterial Total Hemglobin 11.7 g/dl (12.0-18.0); Arterial pCO2 30.4 mmhg (35-45); MODE VENT - AC; Site Right Radial
[2017-05-13] MEDS: POTASSIUM CHLORIDE 40 MEQ in SOD CHLORIDE 0.45% 250 ML IVPB ×2 (10:02→14:37)
[2017-05-13] MEDS: ARTIFICIAL TEARS 15 ML OPH BOTH EYES (14:20)
[2017-05-13] MEDS: FILGRASTIM 480 MCG INJ SC (17:04)
[2017-05-13] MEDS: TPN 1,000 ML IV (17:14)
[2017-05-13 18:26] LABS: ADD MAN DIFF? NO
[2017-05-13 18:28] LABS: WHITE BLOOD COUNT 0.7 10^3/ul (4.8-10.8)
[2017-05-13 18:28] LABS: ABNORMAL IP MESSAGE 1; HEMATOCRIT 23.4 % (42.0-52.0); HEMOGLOBIN 8.1 g/dl (14.0-18.0); LYMPHOCYTES # 0.7 10^3/ul (0.8-2.9); MEAN CORPUSCULAR HEMOGLOBIN 30.1 pg (29.0-33.0); MEAN CORPUSCULAR HGB CONC 34.6 g/dl (32.0-37.0); MEAN PLATELET VOLUME 8.6 fl (7.4-10.4); NEUTROPHILS % 1.4 % (39.0-77.0); POSITIVE DIFF @See below; RED BLOOD COUNT 2.69 10^6/ul (4.70-6.10); RED CELL DISTRIBUTION WIDTH 15.1 % (11.5-14.5)
[2017-05-13 18:38] LABS: LYMPHOCYTES % 98.6 % (15.0-51.0); PLATELET COUNT 18 10^3/UL (140-415)
[2017-05-13] MEDS: INSULIN GLARGINE [LANtus] 3 ML PEN SC (21:16)
[2017-05-13] MEDS: BALSAM PERU/CASTOR OIL 60 GM TUBE TOP (21:57)
[2017-05-14] MEDS: INSULIN ASPART [NOVOLOG] 3 ML PEN SC ×6 (01:00→21:08)
[2017-05-14] MEDS: PROPOFOL 100 ML IV (05:30)
[2017-05-14] MEDS: PANTOPRAZOLE 40 MG INJ IV (05:55)
[2017-05-14] MEDS: MEROPENEM 1 GM/50ML(PMX) 50 ML IVPB ×3 (05:55→22:16)
[2017-05-14] MEDS: HYDROCORTISONE 100 MG INJ IV ×2 (05:56→20:44)
[2017-05-14] MEDS: 1/2 NS + KCL 20 MEQ 1,000 ML IV (05:56)
[2017-05-14 06:00] LABS: ABNORMAL IP MESSAGE 1; HEMATOCRIT 25.8 % (42.0-52.0); MEAN CORPUSCULAR HEMOGLOBIN 29.8 pg (29.0-33.0); MEAN CORPUSCULAR HGB CONC 34.9 g/dl (32.0-37.0); MEAN CORPUSCULAR VOLUME 85.4 fl (82.0-101.0); MEAN PLATELET VOLUME 10.1 fl (7.4-10.4); POSITIVE DIFF @See below; RED BLOOD COUNT 3.02 10^6/ul (4.70-6.10)
[2017-05-14 06:00] LABS: WHITE BLOOD COUNT 0.8 10^3/ul (4.8-10.8)
[2017-05-14] MEDS: NPH, HUMAN INSULIN ISOPHANE 3ML VIAL SC ×3 (06:08→21:11)
[2017-05-14 06:32] LABS: PHOSPHORUS 3.5 mg/dl (2.5-4.9)
[2017-05-14 06:32] LABS: MAGNESIUM 1.6 mg/dl (1.7-2.5)
[2017-05-14 06:52] LABS: ALANINE AMINOTRANSFERASE 133 IU/L (13-69); ALBUMIN 2.6 g/dl (3.3-4.9); ALBUMIN/GLOBULIN RATIO 1.04; ALKALINE PHOSPHATASE 128 IU/L (42-121); ANION GAP 12 (8-16); ASPARTATE AMINO TRANSFERASE 63 IU/L (15-46); BILIRUBIN,INDIRECT 1.6 mg/dl (0-1.1); BILIRUBIN,TOTAL 3.9 mg/dl (0.2-1.3); BLOOD UREA NITROGEN 31 mg/dl (7-20); CALCIUM 8.4 mg/dl (8.4-10.2); CARBON DIOXIDE 29 mmol/L (21-31); CHLORIDE 106 mmol/L (97-110); CREATININE 0.48 mg/dl (0.61-1.24); GLUCOSE 178 mg/dl (70-220); SODIUM 144 mmol/L (135-144); TOTAL PROTEIN 5.1 g/dl (6.1-8.1)
[2017-05-14 06:53] LABS: POTASSIUM 2.6 mmol/L (3.5-5.1)
[2017-05-14 07:07] LABS: ADD MAN DIFF? YES; PLATELET COUNT 8 10^3/UL (140-415)
[2017-05-14 07:31] LABS: TYPE AND SCREEN 1 1
[2017-05-14] MEDS: POTASSIUM CHLORIDE 40 MEQ in SOD CHLORIDE 0.45% 250 ML IVPB ×2 (08:22→12:14)
[2017-05-14] MEDS: MAGNESIUM SULFATE 3 GM in DEXTROSE 5% 100 ML IVPB (08:22)
[2017-05-14 08:24] LABS: LYMPHOCYTES #M 0.7 10^3/ul (0.8-2.9); LYMPHOCYTES % (M) 99 % (15-51); PLATELET ESTIMATE SIG DECREASED; REACTIVE LYMPHOCYTES% (M) 1 % (0-0); SMUDGE%M 23 % (0-0)
[2017-05-14] MEDS: BALSAM PERU/CASTOR OIL 60 GM TUBE TOP ×2 (09:04→21:15)
[2017-05-14] MEDS: TPN 1,000 ML IV ×2 (09:04→20:33)
[2017-05-14 09:40] LABS: AADO2 Arterial 31.5 mmHg (7.0-24.0); Allen Test ACCEPTAB; Arterial Base Excess 6.6 mmol/L (-3.0-3); Arterial Blood Gas Oxygen Sat 98.4 mmHG (95.0-98.0); Arterial COHb 0.3 % (0.0-3.0); Arterial Fraction of Oxyhgb 97.7 % (93.0-99.0); Arterial HCO3 28.5 mmol/L (22.0-26.0); Arterial MetHb 0.4 % (0.0-1.5); Arterial Total Hemglobin 8.2 g/dl (12.0-18.0); Blood Gas PS 10; MODE VENT - CPAP; Site Right Radial
[2017-05-14] MEDS: MAGNESIUM SULFATE 2 GM/50 ML 50 ML IVPB (14:50)
[2017-05-14] MEDS: FILGRASTIM 480 MCG INJ SC (17:03)
[2017-05-14 18:23] LABS: ANION GAP 11 (8-16); BLOOD UREA NITROGEN 27 mg/dl (7-20); CALCIUM 8.4 mg/dl (8.4-10.2); CARBON DIOXIDE 29 mmol/L (21-31); CHLORIDE 104 mmol/L (97-110); CREATININE 0.49 mg/dl (0.61-1.24); GLUCOSE 205 mg/dl (70-220); MAGNESIUM 1.9 mg/dl (1.7-2.5); PHOSPHORUS 2.2 mg/dl (2.5-4.9); SODIUM 141 mmol/L (135-144)
[2017-05-14] MEDS ORDERED: POTASSIUM CHLORIDE 50 ML IVPB (19:00)
[2017-05-14] MEDS: KCL 40 MEQ in NS 250 ML IVPB X1 IVPB (20:43)
[2017-05-14] MEDS: INSULIN GLARGINE [LANtus] 3 ML PEN SC (21:09)
[2017-05-15] MEDS: POTASSIUM PHOSPHATE 40 MEQ in SOD CHLORIDE 0.9% 250 ML IVPB (00:50)
[2017-05-15] MEDS: INSULIN ASPART [NOVOLOG] 3 ML PEN SC ×6 (01:07→21:00)
[2017-05-15] MEDS: MEROPENEM 1 GM/50ML(PMX) 50 ML IVPB ×3 (05:12→21:42)
[2017-05-15 07:46] LABS: WHITE BLOOD COUNT 0.5 10^3/ul (4.8-10.8)
[2017-05-15 07:46] LABS: ABNORMAL IP MESSAGE 1; HEMATOCRIT 23.7 % (42.0-52.0); HEMOGLOBIN 8.3 g/dl (14.0-18.0); MEAN CORPUSCULAR VOLUME 85.6 fl (82.0-101.0); MEAN PLATELET VOLUME 9.7 fl (7.4-10.4); POSITIVE DIFF @See below; RED BLOOD COUNT 2.77 10^6/ul (4.70-6.10); RED CELL DISTRIBUTION WIDTH 14.7 % (11.5-14.5)
[2017-05-15 08:00] LABS: MAGNESIUM 1.5 mg/dl (1.7-2.5)
[2017-05-15 08:00] LABS: PHOSPHORUS 3.3 mg/dl (2.5-4.9)
[2017-05-15 08:02] LABS: ANION GAP 10 (8-16); BLOOD UREA NITROGEN 26 mg/dl (7-20); CALCIUM 8.3 mg/dl (8.4-10.2); CARBON DIOXIDE 28 mmol/L (21-31); CHLORIDE 107 mmol/L (97-110); CREATININE 0.51 mg/dl (0.61-1.24); GLUCOSE 134 mg/dl (70-220); SODIUM 142 mmol/L (135-144)
[2017-05-15 08:20] LABS: ADD MAN DIFF? YES; PLATELET COUNT 10 10^3/UL (140-415)
[2017-05-15] MEDS: BALSAM PERU/CASTOR OIL 60 GM TUBE TOP ×2 (08:39→20:51)
[2017-05-15] MEDS: NPH, HUMAN INSULIN ISOPHANE 3ML VIAL SC (08:44)
[2017-05-15] MEDS: HYDROCORTISONE 100 MG INJ IV (08:44)
[2017-05-15 10:18] LABS: ANISOCYTOSIS 1+ (0-0); ERYTHROBLAST% (NRBC) (M) 1 % (0-0); HYPOCHROMASIA 1+ (0-0); LYMPHOCYTES #M 0.4 10^3/ul (0.8-2.9); LYMPHOCYTES % (M) 98 % (15-51); MICROCYTOSIS 1+ (0-0); PLATELET ESTIMATE SIG DECREASED; POLYCHROMASIA 1+ (0-0); REACTIVE LYMPHOCYTES% (M) 2 % (0-0); SMUDGE%M 4 % (0-0)
[2017-05-15] MEDS: MAGNESIUM SULFATE 3 GM in DEXTROSE 5% 100 ML IVPB (10:54)
[2017-05-15] MEDS: POTASSIUM CHLORIDE 50 ML IVPB ×2 (11:11→13:03)
[2017-05-15] MEDS: FILGRASTIM 480 MCG INJ SC (17:11)
[2017-05-15] MEDS: INSULIN GLARGINE [LANtus] 3 ML PEN SC (20:00)
[2017-05-15] MEDS: DEXTROSE 5%-0.45% NACL 1,000 ML IV (20:33)
[2017-05-16] MEDS: morphine 2 MG INJ IV (00:18)
[2017-05-16] MEDS: INSULIN ASPART [NOVOLOG] 3 ML PEN SC ×6 (00:38→21:00)
[2017-05-16] MEDS: GLUCOSE GEL 15 GRAM TUBE BUCCAL (00:52)
[2017-05-16] MEDS: DEXTROSE 50% 50 ML SYRINGE IV ×2 (01:14→12:06)
[2017-05-16 05:16] LABS: WHITE BLOOD COUNT 0.4 10^3/ul (4.8-10.8)
[2017-05-16 05:16] LABS: ABNORMAL IP MESSAGE 1; HEMATOCRIT 25.7 % (42.0-52.0); HEMOGLOBIN 8.8 g/dl (14.0-18.0); MEAN CORPUSCULAR HEMOGLOBIN 29.4 pg (29.0-33.0); MEAN CORPUSCULAR HGB CONC 34.2 g/dl (32.0-37.0); POSITIVE DIFF @See below; RED BLOOD COUNT 2.99 10^6/ul (4.70-6.10); RED CELL DISTRIBUTION WIDTH 14.6 % (11.5-14.5)
[2017-05-16 05:37] LABS: MAGNESIUM 1.6 mg/dl (1.7-2.5)
[2017-05-16 05:37] LABS: PHOSPHORUS 2.4 mg/dl (2.5-4.9)
[2017-05-16 05:38] LABS: ANION GAP 9 (8-16); BLOOD UREA NITROGEN 19 mg/dl (7-20); CALCIUM 8.2 mg/dl (8.4-10.2); CARBON DIOXIDE 29 mmol/L (21-31); CHLORIDE 105 mmol/L (97-110); CREATININE 0.45 mg/dl (0.61-1.24); GLUCOSE 132 mg/dl (70-220); SODIUM 140 mmol/L (135-144)
[2017-05-16 05:43] LABS: ADD MAN DIFF? YES; PLATELET COUNT 3 10^3/UL (140-415)
[2017-05-16 05:53] LABS: POTASSIUM 2.8 mmol/L (3.5-5.1)
[2017-05-16] MEDS: MEROPENEM 1 GM/50ML(PMX) 50 ML IVPB ×3 (05:58→21:43)
[2017-05-16] MEDS ORDERED: POTASSIUM CHLORIDE (SR) 20 MEQ TAB PO (06:14)
[2017-05-16] MEDS ORDERED: POTASSIUM CHLORIDE 60 MEQ in SOD CHLORIDE 0.9% 500 ML IV (07:00)
[2017-05-16 07:35] LABS: LYMPHOCYTES #M 0.3 10^3/ul (0.8-2.9); LYMPHOCYTES % (M) 99 % (15-51); PLATELET ESTIMATE SIG DECREASED; POLYCHROMASIA 2+ (0-0); SEGMENTED NEUTROPHILS (M) % 1 % (39-77); SMUDGE%M 14 % (0-0)
[2017-05-16] MEDS: MAGNESIUM SULFATE 2 GM/50 ML 50 ML IVPB (08:12)
[2017-05-16] MEDS: BALSAM PERU/CASTOR OIL 60 GM TUBE TOP ×2 (08:16→20:45)
[2017-05-16] MEDS: POTASSIUM CHLORIDE 60 MEQ in SOD CHLORIDE 0.9% 500 ML IV (10:51)
[2017-05-16] MEDS: ALTEPLASE (CATHFLO) 2 MG INJ CATHETER (11:24)
[2017-05-16 12:34] LABS: ALANINE AMINOTRANSFERASE 185 IU/L (13-69); ALBUMIN 2.4 g/dl (3.3-4.9); ALKALINE PHOSPHATASE 310 IU/L (42-121); ASPARTATE AMINO TRANSFERASE 103 IU/L (15-46); BILIRUBIN,INDIRECT 1.4 mg/dl (0-1.1); BILIRUBIN,TOTAL 2.5 mg/dl (0.2-1.3); TOTAL PROTEIN 4.8 g/dl (6.1-8.1)
[2017-05-16] MEDS: DEXTROSE 10% 1,000 ML IV ×2 (14:04→20:30)
[2017-05-16] MEDS: FUROSEMIDE 20 MG INJ IM (16:30)
[2017-05-16] MEDS: POTASSIUM PHOSPHATE 40 MEQ in SOD CHLORIDE 0.9% 250 ML IVPB (18:14)
[2017-05-16] MEDS: FILGRASTIM 480 MCG INJ SC (18:14)
[2017-05-17] MEDS: INSULIN ASPART [NOVOLOG] 3 ML PEN SC ×6 (01:12→21:23)
[2017-05-17] MEDS: DEXTROSE 10% 1,000 ML IV ×4 (03:40→18:38)
[2017-05-17] MEDS: MEROPENEM 1 GM/50ML(PMX) 50 ML IVPB ×3 (05:13→21:54)
[2017-05-17 05:45] LABS: WHITE BLOOD COUNT 0.4 10^3/ul (4.8-10.8)
[2017-05-17 05:45] LABS: ABNORMAL IP MESSAGE 1; HEMATOCRIT 20.5 % (42.0-52.0); HEMOGLOBIN 7.2 g/dl (14.0-18.0); MEAN CORPUSCULAR HEMOGLOBIN 29.6 pg (29.0-33.0); MEAN CORPUSCULAR HGB CONC 35.1 g/dl (32.0-37.0); MEAN CORPUSCULAR VOLUME 84.4 fl (82.0-101.0); MEAN PLATELET VOLUME 13.6 fl (7.4-10.4); POSITIVE DIFF @See below; RED BLOOD COUNT 2.43 10^6/ul (4.70-6.10); RED CELL DISTRIBUTION WIDTH 14.6 % (11.5-14.5)
[2017-05-17 05:53] LABS: ADD MAN DIFF? YES; PLATELET COUNT 4 10^3/UL (140-415)
[2017-05-17 06:23] LABS: ALANINE AMINOTRANSFERASE 121 IU/L (13-69); ALKALINE PHOSPHATASE 226 IU/L (42-121); ASPARTATE AMINO TRANSFERASE 26 IU/L (15-46); BILIRUBIN,TOTAL 1.7 mg/dl (0.2-1.3); TOTAL PROTEIN 4.2 g/dl (6.1-8.1)
[2017-05-17 06:37] LABS: ANION GAP 7 (8-16); BLOOD UREA NITROGEN 11 mg/dl (7-20); CALCIUM 7.8 mg/dl (8.4-10.2); CARBON DIOXIDE 28 mmol/L (21-31); CHLORIDE 100 mmol/L (97-110); CREATININE 0.52 mg/dl (0.61-1.24); GLUCOSE 149 mg/dl (70-220); SODIUM 132 mmol/L (135-144)
[2017-05-17 06:38] LABS: MAGNESIUM 1.2 mg/dl (1.7-2.5)
[2017-05-17 06:38] LABS: PHOSPHORUS 2.7 mg/dl (2.5-4.9)
[2017-05-17 06:47] LABS: POTASSIUM 2.7 mmol/L (3.5-5.1)
[2017-05-17] MEDS: POTASSIUM CHLORIDE (SR) 20 MEQ TAB PO ×2 (07:07→08:46)
[2017-05-17] MEDS: MAGNESIUM SULFATE 2 GM/50 ML 50 ML IVPB (07:52)
[2017-05-17 07:55] LABS: ANISOCYTOSIS 1+ (0-0); LYMPHOCYTES #M 0.3 10^3/ul (0.8-2.9); LYMPHOCYTES % (M) 90 % (15-51); MICROCYTOSIS 1+ (0-0); PLATELET ESTIMATE SIG DECREASED; POLYCHROMASIA 1+ (0-0); SEGMENTED NEUTROPHILS (M) % 10 % (39-77); SMUDGE%M 10 % (0-0)
[2017-05-17] MEDS: oxyCODONE (CR) 10 MG TAB [oxyCONTIN] PO (08:46)
[2017-05-17] MEDS: BALSAM PERU/CASTOR OIL 60 GM TUBE TOP ×2 (08:47→21:19)
[2017-05-17] MEDS: SOD CHLORIDE 0.9% 1,000 ML IV ×2 (10:50→16:17)
[2017-05-17 11:18] LABS: IMMEDIATE SPIN CROSSMATCH 1 2
[2017-05-17] MEDS: FILGRASTIM 480 MCG INJ SC (16:57)
[2017-05-18] MEDS: ACCU-CHEK XX ×2 (02:00→21:31)
[2017-05-18] MEDS: DEXTROSE 10% 1,000 ML IV ×3 (04:59→22:55)
[2017-05-18] MEDS: MEROPENEM 1 GM/50ML(PMX) 50 ML IVPB ×3 (05:00→21:39)
[2017-05-18 06:04] LABS: WHITE BLOOD COUNT 0.4 10^3/ul (4.8-10.8)
[2017-05-18 06:04] LABS: ABNORMAL IP MESSAGE 1; HEMATOCRIT 24.3 % (42.0-52.0); HEMOGLOBIN 8.7 g/dl (14.0-18.0); MEAN CORPUSCULAR HEMOGLOBIN 29.8 pg (29.0-33.0); MEAN CORPUSCULAR HGB CONC 35.8 g/dl (32.0-37.0); MEAN CORPUSCULAR VOLUME 83.2 fl (82.0-101.0); MEAN PLATELET VOLUME 9.1 fl (7.4-10.4); POSITIVE DIFF @See below; RED BLOOD COUNT 2.92 10^6/ul (4.70-6.10); RED CELL DISTRIBUTION WIDTH 13.9 % (11.5-14.5)
[2017-05-18 06:11] LABS: ALANINE AMINOTRANSFERASE 97 IU/L (13-69); ALBUMIN 2.1 g/dl (3.3-4.9); ALKALINE PHOSPHATASE 249 IU/L (42-121); ASPARTATE AMINO TRANSFERASE 22 IU/L (15-46); BILIRUBIN,INDIRECT 1.1 mg/dl (0-1.1); BILIRUBIN,TOTAL 1.9 mg/dl (0.2-1.3); TOTAL PROTEIN 4.6 g/dl (6.1-8.1)
[2017-05-18 06:25] LABS: PHOSPHORUS 2.2 mg/dl (2.5-4.9)
[2017-05-18 06:25] LABS: MAGNESIUM 1.1 mg/dl (1.7-2.5)
[2017-05-18 06:44] LABS: PLATELET COUNT 8 10^3/UL (140-415)
[2017-05-18 06:45] LABS: ADD MAN DIFF? YES
[2017-05-18 06:51] LABS: ANION GAP 9 (8-16); BLOOD UREA NITROGEN 8 mg/dl (7-20); CALCIUM 7.8 mg/dl (8.4-10.2); CARBON DIOXIDE 26 mmol/L (21-31); CHLORIDE 98 mmol/L (97-110); CREATININE 0.47 mg/dl (0.61-1.24); GLUCOSE 194 mg/dl (70-220); SODIUM 130 mmol/L (135-144)
[2017-05-18 06:53] LABS: POTASSIUM 2.9 mmol/L (3.5-5.1)
[2017-05-18] MEDS: MAGNESIUM SULFATE 3 GM in DEXTROSE 5% 100 ML IVPB (08:04)
[2017-05-18] MEDS: POTASSIUM CHLORIDE IV (08:23)
[2017-05-18] MEDS: DEXTROSE 5% IV (08:23)
[2017-05-18] MEDS: INSULIN ASPART [NOVOLOG] 3 ML PEN SC ×4 (08:57→20:56)
[2017-05-18 10:08] LABS: ANISOCYTOSIS 1+ (0-0); BURR CELLS 1+ (0-0); ERYTHROBLAST% (NRBC) (M) 1 % (0-0); LYMPHOCYTES #M 0.3 10^3/ul (0.8-2.9); LYMPHOCYTES % (M) 99 % (15-51); MICROCYTOSIS 1+ (0-0); MONOCYTES % (M) 1 % (0-11); PLATELET ESTIMATE SIG DECREASED; POLYCHROMASIA 1+ (0-0); SMUDGE%M 19 % (0-0)
[2017-05-18] MEDS: BALSAM PERU/CASTOR OIL 60 GM TUBE TOP ×2 (10:16→20:48)
[2017-05-18] MEDS: POTASSIUM CHLORIDE (SR) 20 MEQ TAB PO (13:46)
[2017-05-18] MEDS ORDERED: SOD CHLORIDE 0.9% 250 ML IV (16:30)
[2017-05-18] MEDS ORDERED: ZINC OXIDE 13% (DESITIN) CREAM 2 OZ TUBE TOP (17:00)
[2017-05-18] MEDS: SOD CHLORIDE 0.9% 1,000 ML IV (17:05)
[2017-05-18] MEDS: FILGRASTIM 480 MCG INJ SC (17:26)
[2017-05-18] MEDS: INSULIN GLARGINE [LANtus] 3 ML PEN SC (20:57)
[2017-05-18] MEDS: ZINC OXIDE 13% (DESITIN) CREAM 2 OZ TUBE TOP (21:22)
[2017-05-19 05:43] LABS: ABNORMAL IP MESSAGE 1; HEMATOCRIT 27.6 % (42.0-52.0); MEAN CORPUSCULAR HGB CONC 36.2 g/dl (32.0-37.0); MEAN CORPUSCULAR VOLUME 82.9 fl (82.0-101.0); POSITIVE DIFF @See below; RED BLOOD COUNT 3.33 10^6/ul (4.70-6.10); RED CELL DISTRIBUTION WIDTH 13.5 % (11.5-14.5)
[2017-05-19 05:43] LABS: WHITE BLOOD COUNT 0.4 10^3/ul (4.8-10.8)
[2017-05-19 05:57] LABS: ADD MAN DIFF? YES; PLATELET COUNT 5 10^3/UL (140-415)
[2017-05-19 06:05] LABS: ALANINE AMINOTRANSFERASE 95 IU/L (13-69); ALBUMIN 2.4 g/dl (3.3-4.9); ALBUMIN/GLOBULIN RATIO 0.85; ALKALINE PHOSPHATASE 465 IU/L (42-121); ANION GAP 9 (8-16); ASPARTATE AMINO TRANSFERASE 24 IU/L (15-46); BILIRUBIN,TOTAL 2.3 mg/dl (0.2-1.3); BLOOD UREA NITROGEN 7 mg/dl (7-20); CARBON DIOXIDE 25 mmol/L (21-31); CHLORIDE 98 mmol/L (97-110); GLUCOSE 172 mg/dl (70-220); POTASSIUM 3.1 mmol/L (3.5-5.1); SODIUM 129 mmol/L (135-144); TOTAL PROTEIN 5.2 g/dl (6.1-8.1)
[2017-05-19] MEDS: MEROPENEM 1 GM/50ML(PMX) 50 ML IVPB ×3 (06:43→22:26)
[2017-05-19] MEDS: INSULIN ASPART [NOVOLOG] 3 ML PEN SC ×4 (07:50→22:27)
[2017-05-19] MEDS: ZINC OXIDE 13% (DESITIN) CREAM 2 OZ TUBE TOP ×3 (09:10→22:27)
[2017-05-19] MEDS: DEXTROSE 10% 1,000 ML IV (09:10)
[2017-05-19] MEDS: BALSAM PERU/CASTOR OIL 60 GM TUBE TOP ×2 (09:11→22:26)
[2017-05-19] MEDS: POTASSIUM CHLORIDE (SR) 20 MEQ TAB PO ×2 (10:30→14:30)
[2017-05-19] MEDS: MEGESTROL (40 MG/ML) 10ML CUP PO ×2 (11:13→22:26)
[2017-05-19] MEDS: POTASSIUM CHLORIDE 20 MEQ POWDER FOR ORAL SOLN PO (11:20)
[2017-05-19 12:08] LABS: BAND NEUTROPHILS % (M) 1 % (0-4); LYMPHOCYTES #M 0.3 10^3/ul (0.8-2.9); LYMPHOCYTES % (M) 98 % (15-51); PLASMAC%(M) 1 % (0); PLATELET ESTIMATE SIG DECREASED; POIKILOCYTOSIS 1+ (0-0); SMUDGE%M 15 % (0-0)
[2017-05-19 12:47] LABS: TYPE AND SCREEN 1
[2017-05-19] MEDS: LACTATED RINGER'S 500 ML IV (16:36)
[2017-05-19] MEDS: FILGRASTIM 480 MCG INJ SC (17:24)
[2017-05-19 17:40] LABS: TROPONIN-I < 0.012 ng/ml (0.00-0.12)
[2017-05-19 17:46] LABS: LACTIC ACID 1.8 mmol/L (0.5-2.0)
[2017-05-19] MEDS: METOPROLOL 5 MG INJ IV ×2 (18:59→19:51)
[2017-05-19] MEDS: LACTATED RINGER'S 1,000 ML IV (19:01)
[2017-05-19] MEDS ORDERED: POLYETHYLENE GLYCOL 3350 119 GM POWDER PO (20:30)
[2017-05-19] MEDS: INSULIN GLARGINE [LANtus] 3 ML PEN SC (21:44)
[2017-05-20] MEDS: SOD CHLORIDE 0.9% 500 ML IV (01:28)
[2017-05-20] MEDS: METOPROLOL 5 MG INJ IV (01:28)
[2017-05-20] MEDS: ACCU-CHEK XX (01:52)
[2017-05-20] MEDS: LACTATED RINGER'S 1,000 ML IV (03:40)
[2017-05-20] MEDS: DEXTROSE 50% 50 ML SYRINGE IV (03:55)
[2017-05-20] MEDS: INSULIN ASPART [NOVOLOG] 3 ML PEN SC ×5 (05:00→21:56)
[2017-05-20] MEDS: MEROPENEM 1 GM/50ML(PMX) 50 ML IVPB ×3 (05:20→22:00)
[2017-05-20] MEDS ORDERED: GLUCOSE GEL 15 GRAM TUBE BUCCAL (05:30)
[2017-05-20] MEDS ORDERED: GLUCAGON 1 MG INJ IM (05:30)
[2017-05-20] MEDS ORDERED: DEXTROSE 50% 50 ML SYRINGE IV (05:30)
[2017-05-20] MEDS ORDERED: GLUCOSE GEL 15 GRAM TUBE PO ×2 (05:30)
[2017-05-20] MEDS: DEXTROSE 5%-0.45% NACL 1,000 ML IV ×2 (06:27→16:00)
[2017-05-20 06:36] LABS: ABNORMAL IP MESSAGE 1; HEMATOCRIT 22.5 % (42.0-52.0); HEMOGLOBIN 8.1 g/dl (14.0-18.0); MEAN CORPUSCULAR HEMOGLOBIN 29.5 pg (29.0-33.0); MEAN CORPUSCULAR VOLUME 81.8 fl (82.0-101.0); POSITIVE DIFF @See below; RED BLOOD COUNT 2.75 10^6/ul (4.70-6.10); RED CELL DISTRIBUTION WIDTH 13.2 % (11.5-14.5)
[2017-05-20 06:36] LABS: WHITE BLOOD COUNT 0.4 10^3/ul (4.8-10.8)
[2017-05-20 07:40] LABS: MEAN PLATELET VOLUME 11.1 fl (7.4-10.4)
[2017-05-20 07:41] LABS: ADD MAN DIFF? YES; PLATELET COUNT 8 10^3/UL (140-415)
[2017-05-20] MEDS: BALSAM PERU/CASTOR OIL 60 GM TUBE TOP ×2 (08:17→21:44)
[2017-05-20] MEDS: ZINC OXIDE 13% (DESITIN) CREAM 2 OZ TUBE TOP ×6 (08:17→21:45)
[2017-05-20] MEDS: MEGESTROL (40 MG/ML) 10ML CUP PO ×2 (08:35→21:57)
[2017-05-20 10:34] LABS: ANION GAP 11 (8-16); BLOOD UREA NITROGEN 8 mg/dl (7-20); CALCIUM 8.2 mg/dl (8.4-10.2); CARBON DIOXIDE 22 mmol/L (21-31); CHLORIDE 102 mmol/L (97-110); CREATININE 0.43 mg/dl (0.61-1.24); GLUCOSE 91 mg/dl (70-220); MAGNESIUM 1.1 mg/dl (1.7-2.5); PHOSPHORUS 3.6 mg/dl (2.5-4.9); SODIUM 132 mmol/L (135-144)
[2017-05-20 10:36] LABS: POTASSIUM 2.9 mmol/L (3.5-5.1)
[2017-05-20 11:36] LABS: ANISOCYTOSIS 1+ (0-0); GIANT THROMBO% (M) 2 % (0-0); LYMPHOCYTES #M 0.3 10^3/ul (0.8-2.9); LYMPHOCYTES % (M) 98 % (15-51); MONOCYTES % (M) 1 % (0-11); PLATELET ESTIMATE SIG DECREASED; REACTIVE LYMPHOCYTES% (M) 1 % (0-0); SMUDGE%M 7 % (0-0)
[2017-05-20] MEDS: POTASSIUM CHLORIDE 20 MEQ POWDER FOR ORAL SOLN PO ×2 (12:16→15:50)
[2017-05-20] MEDS: MAGNESIUM SULFATE 4 GM/100 ML 100 ML IVPB (13:24)
[2017-05-20] MEDS: ACETAMINOPHEN 325 MG TAB PO (14:18)
[2017-05-20] MEDS: ONDANSETRON 4 MG INJ IV (15:49)
[2017-05-20] MEDS: FILGRASTIM 480 MCG INJ SC (17:38)
[2017-05-20] MEDS: DEXTROSE 5%-LR 1,000 ML IV (18:15)
[2017-05-20] MEDS ORDERED: VANCOMYCIN IV PER PHARMACY XX (18:30)
[2017-05-20] MEDS: LACTATED RINGER'S 500 ML IV (18:47)
[2017-05-20] MEDS: INSULIN GLARGINE [LANtus] 3 ML PEN SC (20:00)
[2017-05-20 20:09] LABS: LACTIC ACID 1.2 mmol/L (0.5-2.0)
[2017-05-20] MEDS: TPN 1,000 ML IV (21:06)
[2017-05-20] MEDS: VANCOMYCIN 1.25 GM in SOD CHLORIDE 0.9% 250 ML IVPB (21:07)
[2017-05-20] MEDS: VORICONAZOLE 200 MG/100 ML 100 ML IVPB (22:30)
[2017-05-21] MEDS: SOD CHLORIDE 0.9% 1,000 ML IV ×3 (00:24→20:00)
[2017-05-21] MEDS: INSULIN ASPART [NOVOLOG] 3 ML PEN SC ×6 (01:28→21:48)
[2017-05-21] MEDS ORDERED: DILTIAZEM 25 MG INJ (01:56)
[2017-05-21] MEDS ORDERED: NORepinephrine 8MG/250 ML (PMX 250 ML IV (02:00)
[2017-05-21] MEDS: DILTIAZEM 25 MG INJ IV (02:59)
[2017-05-21] MEDS: METOPROLOL 5 MG INJ IV ×2 (03:01→06:45)
[2017-05-21 04:02] LABS: ADD UMIC YES; UR ASCORBIC ACID NEGATIVE (NEGATIVE); UR BACTERIA FEW /HPF (NONE SEEN); UR BILIRUBIN (Dip) NEGATIVE (NEGATIVE); UR BLOOD (Dip) 3+ mg/dL (NEGATIVE); UR CLARITY CLEAR (CLEAR); UR COLOR YELLOW (YELLOW); UR GLUCOSE (Dip) 1+ mg/dL (NEGATIVE); UR KETONES (Dip) NEGATIVE (NEGATIVE); UR LEUKOCYTE ESTERASE (Dip) NEGATIVE Leu/ul (NEGATIVE); UR MUCUS FEW /HPF (NONE SEEN); UR NITRITE (Dip) NEGATIVE (NEGATIVE); UR RBC 146 /HPF (0-5); UR SPECIFIC GRAVITY (Dip) 1.009 (1.003-1.030); UR TOTAL PROTEIN (Dip) NEGATIVE (NEGATIVE); UR UROBILINOGEN (Dip) NEGATIVE (NEGATIVE); UR WBC 1 /HPF (0-5)
[2017-05-21] MEDS: MEROPENEM 1 GM/50ML(PMX) 50 ML IVPB ×3 (05:28→22:49)
[2017-05-21 06:28] LABS: ABNORMAL IP MESSAGE 1; POSITIVE DIFF @See below; RED CELL DISTRIBUTION WIDTH 13.2 % (11.5-14.5)
[2017-05-21 06:42] LABS: HEMATOCRIT 21.3 % (42.0-52.0); HEMOGLOBIN 7.8 g/dl (14.0-18.0); MEAN CORPUSCULAR HEMOGLOBIN 29.9 pg (29.0-33.0); MEAN CORPUSCULAR HGB CONC 36.6 g/dl (32.0-37.0); MEAN CORPUSCULAR VOLUME 81.6 fl (82.0-101.0); RED BLOOD COUNT 2.61 10^6/ul (4.70-6.10)
[2017-05-21 06:42] LABS: WHITE BLOOD COUNT 0.4 10^3/ul (4.8-10.8)
[2017-05-21 06:47] LABS: PLATELET COUNT 3 10^3/UL (140-415)
[2017-05-21 06:48] LABS: ADD MAN DIFF? YES
[2017-05-21 06:51] LABS: ALANINE AMINOTRANSFERASE 56 IU/L (13-69); ALBUMIN 2.2 g/dl (3.3-4.9); ALKALINE PHOSPHATASE 327 IU/L (42-121); ANION GAP 11 (8-16); ASPARTATE AMINO TRANSFERASE 12 IU/L (15-46); BILIRUBIN,INDIRECT 0.9 mg/dl (0-1.1); BILIRUBIN,TOTAL 1.5 mg/dl (0.2-1.3); BLOOD UREA NITROGEN 11 mg/dl (7-20); CARBON DIOXIDE 22 mmol/L (21-31); CHLORIDE 102 mmol/L (97-110); CREATININE 0.49 mg/dl (0.61-1.24); GLUCOSE 204 mg/dl (70-220); POTASSIUM 3.1 mmol/L (3.5-5.1); SODIUM 132 mmol/L (135-144); TOTAL PROTEIN 5.3 g/dl (6.1-8.1)
[2017-05-21 07:32] LABS: PHOSPHORUS 3.3 mg/dl (2.5-4.9)
[2017-05-21 07:32] LABS: MAGNESIUM 1.5 mg/dl (1.7-2.5); TRIGLYCERIDES 189 mg/dl (0-149)
[2017-05-21] MEDS: MEGESTROL (40 MG/ML) 10ML CUP PO ×2 (08:12→21:38)
[2017-05-21] MEDS: VANCOMYCIN 1 GM 250 ML IVPB ×2 (08:12→21:33)
[2017-05-21] MEDS: TPN 1,000 ML IV (08:12)
[2017-05-21] MEDS: BALSAM PERU/CASTOR OIL 60 GM TUBE TOP ×2 (08:33→21:37)
[2017-05-21] MEDS: ZINC OXIDE 13% (DESITIN) CREAM 2 OZ TUBE TOP (08:34)
[2017-05-21 08:37] LABS: PREALBUMIN < 3.0 mg/dl (17.6-36.0)
[2017-05-21] MEDS: ACETAMINOPHEN 325 MG TAB PO (09:06)
[2017-05-21 09:17] LABS: ANISOCYTOSIS 1+ (0-0); LYMPHOCYTES #M 0.3 10^3/ul (0.8-2.9); LYMPHOCYTES % (M) 97 % (15-51); MONOCYTES % (M) 2 % (0-11); MYELOCYTES % (M) 1 % (0-0); PLATELET ESTIMATE SIG DECREASED; POLYCHROMASIA 3+ (0-0); SMUDGE%M 3 % (0-0)
[2017-05-21] MEDS: ACETAMINOPHEN 650MG/20.3ML CUP PO (09:44)
[2017-05-21] MEDS: POTASSIUM CHLORIDE 20 MEQ POWDER FOR ORAL SOLN PO ×2 (10:00→14:21)
[2017-05-21] MEDS: ALBUMIN HUMAN 25% 100 ML IV (11:52)
[2017-05-21 12:16] LABS: IMMEDIATE SPIN CROSSMATCH 1 2
[2017-05-21] MEDS: VORICONAZOLE 200 MG/100 ML 100 ML IVPB ×2 (12:39→22:49)
[2017-05-21] MEDS: MAGNESIUM SULFATE 3 GM in DEXTROSE 5% 100 ML IVPB (14:27)
[2017-05-21] MEDS: POTASSIUM CHLORIDE 100 ML IVPB ×2 (16:47→18:34)
[2017-05-21] MEDS ORDERED: ACETAMINOPHEN 650MG/20.3ML CUP PO (18:00)
[2017-05-21] MEDS: FILGRASTIM 480 MCG INJ SC (18:33)
[2017-05-21] MEDS: POTASSIUM CHLORIDE 40 MEQ in SOD CHLORIDE 0.9% 250 ML IVPB (21:34)
[2017-05-21] MEDS: INSULIN GLARGINE [LANtus] 3 ML PEN SC (21:47)
[2017-05-22] MEDS: INSULIN ASPART [NOVOLOG] 3 ML PEN SC ×6 (02:04→20:48)
[2017-05-22] MEDS: SOD CHLORIDE 0.9% 1,000 ML IV ×2 (03:07→16:00)
[2017-05-22] MEDS: TPN 1,000 ML IV ×2 (03:08→09:12)
[2017-05-22] MEDS: SOD CHLORIDE 0.9% 500 ML IV (03:21)
[2017-05-22] MEDS: ALBUMIN HUMAN 25% 100 ML IV (06:00)
[2017-05-22 06:28] LABS: ABNORMAL IP MESSAGE 1; HEMATOCRIT 17.3 % (42.0-52.0); MEAN CORPUSCULAR HEMOGLOBIN 29.8 pg (29.0-33.0); MEAN CORPUSCULAR HGB CONC 35.8 g/dl (32.0-37.0); MEAN CORPUSCULAR VOLUME 83.2 fl (82.0-101.0); MEAN PLATELET VOLUME 12.6 fl (7.4-10.4); POSITIVE DIFF @See below; RED BLOOD COUNT 2.08 10^6/ul (4.70-6.10); RED CELL DISTRIBUTION WIDTH 13.5 % (11.5-14.5)
[2017-05-22 06:28] LABS: WHITE BLOOD COUNT 0.5 10^3/ul (4.8-10.8)
[2017-05-22] MEDS: MEROPENEM 1 GM/50ML(PMX) 50 ML IVPB ×2 (07:05→14:50)
[2017-05-22 07:07] LABS: ADD MAN DIFF? YES; HEMOGLOBIN 6.2 g/dl (14.0-18.0); PLATELET COUNT 9 10^3/UL (140-415)
[2017-05-22 08:03] LABS: VANCOMYCIN,TROUGH 13.3 ug/ml (10.0-20.0)
[2017-05-22] MEDS: BALSAM PERU/CASTOR OIL 60 GM TUBE TOP ×2 (09:12→20:38)
[2017-05-22] MEDS: MEGESTROL (40 MG/ML) 10ML CUP PO ×2 (09:12→20:38)
[2017-05-22 09:35] LABS: ANION GAP 11 (8-16); BLOOD UREA NITROGEN 14 mg/dl (7-20); CALCIUM 8.5 mg/dl (8.4-10.2); CARBON DIOXIDE 22 mmol/L (21-31); CHLORIDE 109 mmol/L (97-110); CREATININE 0.48 mg/dl (0.61-1.24); GLUCOSE 142 mg/dl (70-220); MAGNESIUM 1.5 mg/dl (1.7-2.5); PHOSPHORUS 3.8 mg/dl (2.5-4.9); POTASSIUM 3.1 mmol/L (3.5-5.1); SODIUM 139 mmol/L (135-144)
[2017-05-22 09:41] LABS: LYMPHOCYTES #M 0.5 10^3/ul (0.8-2.9); LYMPHOCYTES % (M) 100 % (15-51); PLATELET ESTIMATE SIG DECREASED; POLYCHROMASIA 1+ (0-0); SMUDGE%M 15 % (0-0)
[2017-05-22] MEDS ORDERED: MAGNESIUM OXIDE 400 MG TAB PO (10:00)
[2017-05-22] MEDS ORDERED: POTASSIUM CHLORIDE 20 MEQ POWDER FOR ORAL SOLN PO (10:00)
[2017-05-22] MEDS: POTASSIUM CHLORIDE 20 MEQ POWDER FOR ORAL SOLN PO (10:17)
[2017-05-22] MEDS: VANCOMYCIN 1 GM 250 ML IVPB ×2 (10:18→20:37)
[2017-05-22] MEDS: MAGNESIUM HYDROXIDE 30ML CUP PO ×2 (11:00→20:39)
[2017-05-22] MEDS: GENTAMICIN 0.1% CREAM 15GM TUBE TOP ×2 (12:21→20:38)
[2017-05-22] MEDS: VORICONAZOLE 200 MG/100 ML 100 ML IVPB ×2 (12:40→23:15)
[2017-05-22] MEDS: FILGRASTIM 480 MCG INJ SC (18:45)
[2017-05-22] MEDS: INSULIN GLARGINE [LANtus] 3 ML PEN SC (20:49)
[2017-05-22] MEDS: METOPROLOL 25 MG TAB PO (21:56)
[2017-05-22] MEDS: morphine 2 MG INJ IV (21:57)
[2017-05-23] MEDS: MEROPENEM 1 GM/50ML(PMX) 50 ML IVPB ×4 (00:07→22:27)
[2017-05-23] MEDS: INSULIN ASPART [NOVOLOG] 3 ML PEN SC ×6 (01:00→20:40)
[2017-05-23] MEDS: SOD CHLORIDE 0.9% 1,000 ML IV ×3 (03:40→20:39)
[2017-05-23] MEDS: TPN 1,000 ML IV ×2 (03:40→17:31)
[2017-05-23 05:55] LABS: ABNORMAL IP MESSAGE 1; HEMATOCRIT 23.2 % (42.0-52.0); HEMOGLOBIN 7.8 g/dl (14.0-18.0); MEAN CORPUSCULAR HEMOGLOBIN 29.4 pg (29.0-33.0); MEAN CORPUSCULAR HGB CONC 33.6 g/dl (32.0-37.0); MEAN CORPUSCULAR VOLUME 87.5 fl (82.0-101.0); POSITIVE DIFF @See below; RED BLOOD COUNT 2.65 10^6/ul (4.70-6.10); RED CELL DISTRIBUTION WIDTH 15.4 % (11.5-14.5)
[2017-05-23 05:55] LABS: WHITE BLOOD COUNT 0.4 10^3/ul (4.8-10.8)
[2017-05-23 05:58] LABS: PLATELET COUNT 4 10^3/UL (140-415)
[2017-05-23 05:59] LABS: ADD MAN DIFF? YES
[2017-05-23 08:01] LABS: ANION GAP 11 (8-16); BLOOD UREA NITROGEN 16 mg/dl (7-20); CALCIUM 8.7 mg/dl (8.4-10.2); CARBON DIOXIDE 24 mmol/L (21-31); CHLORIDE 105 mmol/L (97-110); CREATININE 0.51 mg/dl (0.61-1.24); GLUCOSE 94 mg/dl (70-220); MAGNESIUM 1.2 mg/dl (1.7-2.5); POTASSIUM 3.3 mmol/L (3.5-5.1); SODIUM 137 mmol/L (135-144)
[2017-05-23 08:11] LABS: ANISOCYTOSIS 2+ (0-0); GIANT THROMBO% (M) 1 % (0-0); LYMPHOCYTES #M 0.4 10^3/ul (0.8-2.9); LYMPHOCYTES % (M) 100 % (15-51); MICROCYTOSIS 1+ (0-0); PLATELET ESTIMATE SIG DECREASED; POLYCHROMASIA 1+ (0-0); SMUDGE%M 25 % (0-0)
[2017-05-23 08:38] LABS: POST-TRANSFUSION BILIRUBIN 1.4 mg/dl
[2017-05-23] MEDS: MEGESTROL (40 MG/ML) 10ML CUP PO ×2 (08:42→20:40)
[2017-05-23] MEDS: VANCOMYCIN 1 GM 250 ML IVPB (08:42)
[2017-05-23] MEDS: POTASSIUM CHLORIDE 20 MEQ POWDER FOR ORAL SOLN PO (08:43)
[2017-05-23] MEDS: MAGNESIUM HYDROXIDE 30ML CUP PO ×2 (08:43→20:41)
[2017-05-23] MEDS: GENTAMICIN 0.1% CREAM 15GM TUBE TOP ×3 (08:43→20:40)
[2017-05-23] MEDS: BALSAM PERU/CASTOR OIL 60 GM TUBE TOP ×2 (08:43→20:40)
[2017-05-23] MEDS: MAGNESIUM SULFATE 2 GM/50 ML 50 ML IVPB (09:37)
[2017-05-23] MEDS: VORICONAZOLE 200 MG/100 ML 100 ML IVPB ×2 (09:39→22:27)
[2017-05-23] MEDS: LINEZOLID 600 MG/D5W (PMX) 300 ML IVPB (10:45)
[2017-05-23 14:20] LABS: TYPE AND SCREEN 1
[2017-05-23] MEDS: SOD CHLORIDE 0.9% IVPB (17:29)
[2017-05-23] MEDS: DAPTOMYCIN IVPB (17:29)
[2017-05-23] MEDS: FILGRASTIM 480 MCG INJ SC (17:30)
[2017-05-23] MEDS: INSULIN GLARGINE [LANtus] 3 ML PEN SC (20:50)
[2017-05-24] MEDS: INSULIN ASPART [NOVOLOG] 3 ML PEN SC ×6 (01:00→21:14)
[2017-05-24] MEDS: DEXTROSE 50% 50 ML SYRINGE IV (04:23)
[2017-05-24 04:32] LABS: ABNORMAL IP MESSAGE 1; HEMATOCRIT 20.4 % (42.0-52.0); HEMOGLOBIN 7.4 g/dl (14.0-18.0); MEAN CORPUSCULAR HEMOGLOBIN 29.4 pg (29.0-33.0); MEAN CORPUSCULAR HGB CONC 36.3 g/dl (32.0-37.0); MEAN PLATELET VOLUME 9.7 fl (7.4-10.4); POSITIVE DIFF @See below; RED BLOOD COUNT 2.52 10^6/ul (4.70-6.10); RED CELL DISTRIBUTION WIDTH 14.1 % (11.5-14.5)
[2017-05-24 04:32] LABS: WHITE BLOOD COUNT 0.7 10^3/ul (4.8-10.8)
[2017-05-24 04:40] LABS: ADD MAN DIFF? YES; PLATELET COUNT 15 10^3/UL (140-415)
[2017-05-24 04:50] LABS: ANION GAP 11 (8-16); BLOOD UREA NITROGEN 18 mg/dl (7-20); CALCIUM 8.8 mg/dl (8.4-10.2); CARBON DIOXIDE 23 mmol/L (21-31); CHLORIDE 106 mmol/L (97-110); CREATININE 0.51 mg/dl (0.61-1.24); GLUCOSE 66 mg/dl (70-220); MAGNESIUM 1.4 mg/dl (1.7-2.5); POTASSIUM 3.2 mmol/L (3.5-5.1); SODIUM 137 mmol/L (135-144)
[2017-05-24] MEDS ORDERED: ALTEPLASE (CATHFLO) 2 MG INJ CATHETER (05:00)
[2017-05-24 05:13] LABS: CREATINE KINASE < 20 IU/L (23-200)
[2017-05-24] MEDS: MEROPENEM 1 GM/50ML(PMX) 50 ML IVPB ×3 (05:50→21:57)
[2017-05-24] MEDS ORDERED: POTASSIUM CHLORIDE 50 ML IVPB (06:00)
[2017-05-24] MEDS: MAGNESIUM SULFATE 3 GM in DEXTROSE 5% 100 ML IVPB (06:43)
[2017-05-24] MEDS: POTASSIUM CHLORIDE 100 ML IVPB (06:43)
[2017-05-24 07:58] LABS: ANISOCYTOSIS 1+ (0-0); GIANT THROMBO% (M) 1 % (0-0); LYMPHOCYTES #M 0.6 10^3/ul (0.8-2.9); LYMPHOCYTES % (M) 99 % (15-51); MICROCYTOSIS 1+ (0-0); PLATELET ESTIMATE DECREASED; POLYCHROMASIA 1+ (0-0); REACTIVE LYMPHOCYTES% (M) 1 % (0-0); SMUDGE%M 8 % (0-0)
[2017-05-24] MEDS: SOD CHLORIDE 0.9% 1,000 ML IV ×3 (08:00→17:14)
[2017-05-24] MEDS: POTASSIUM CHLORIDE 20 MEQ POWDER FOR ORAL SOLN PO (08:28)
[2017-05-24] MEDS: MEGESTROL (40 MG/ML) 10ML CUP PO ×2 (08:28→21:00)
[2017-05-24] MEDS: MAGNESIUM HYDROXIDE 30ML CUP PO ×2 (08:28→21:00)
[2017-05-24] MEDS: POTASSIUM CHLORIDE 10 MEQ in SOD CHLORIDE 0.9% 50 ML IV (08:28)
[2017-05-24] MEDS: TPN 1,000 ML IV ×2 (08:28→21:58)
[2017-05-24] MEDS: GENTAMICIN 0.1% CREAM 15GM TUBE TOP ×3 (08:29→21:10)
[2017-05-24] MEDS: BALSAM PERU/CASTOR OIL 60 GM TUBE TOP ×2 (08:29→21:10)
[2017-05-24] MEDS: VORICONAZOLE 200 MG/100 ML 100 ML IVPB ×2 (10:43→21:58)
[2017-05-24 12:45] LABS: ADD UMIC YES; UR ASCORBIC ACID NEGATIVE (NEGATIVE); UR BILIRUBIN (Dip) NEGATIVE (NEGATIVE); UR BLOOD (Dip) 2+ mg/dL (NEGATIVE); UR CLARITY CLEAR (CLEAR); UR COLOR AMBER (YELLOW); UR GLUCOSE (Dip) NEGATIVE (NEGATIVE); UR KETONES (Dip) NEGATIVE (NEGATIVE); UR LEUKOCYTE ESTERASE (Dip) NEGATIVE Leu/ul (NEGATIVE); UR MUCUS FEW /HPF (NONE SEEN); UR NITRITE (Dip) NEGATIVE (NEGATIVE); UR RBC 43 /HPF (0-5); UR SPECIFIC GRAVITY (Dip) 1.014 (1.003-1.030); UR TOTAL PROTEIN (Dip) 1+ mg/dl (NEGATIVE); UR UROBILINOGEN (Dip) NEGATIVE (NEGATIVE); UR WBC 1 /HPF (0-5)
[2017-05-24 14:07] LABS: IMMEDIATE SPIN CROSSMATCH 1 3
[2017-05-24] MEDS: SOD CHLORIDE 0.9% IVPB (16:21)
[2017-05-24] MEDS: DAPTOMYCIN IVPB (16:21)
[2017-05-24] MEDS: FILGRASTIM 480 MCG INJ SC (16:22)
[2017-05-24] MEDS: INSULIN GLARGINE [LANtus] 3 ML PEN SC (21:16)
[2017-05-24] MEDS: morphine 2 MG INJ IV (22:13)
[2017-05-25] MEDS: INSULIN ASPART [NOVOLOG] 3 ML PEN SC ×6 (00:15→20:54)
[2017-05-25] MEDS: SOD CHLORIDE 0.9% 1,000 ML IV ×2 (04:03→12:44)
[2017-05-25 05:14] LABS: ALANINE AMINOTRANSFERASE 40 IU/L (13-69); ALBUMIN 2.2 g/dl (3.3-4.9); ALKALINE PHOSPHATASE 245 IU/L (42-121); ANION GAP 11 (8-16); ASPARTATE AMINO TRANSFERASE 14 IU/L (15-46); BILIRUBIN,INDIRECT 0.9 mg/dl (0-1.1); BILIRUBIN,TOTAL 1.6 mg/dl (0.2-1.3); BLOOD UREA NITROGEN 19 mg/dl (7-20); CALCIUM 8.4 mg/dl (8.4-10.2); CARBON DIOXIDE 23 mmol/L (21-31); CHLORIDE 107 mmol/L (97-110); CREATININE 0.51 mg/dl (0.61-1.24); GLUCOSE 132 mg/dl (70-220); POTASSIUM 3.8 mmol/L (3.5-5.1); SODIUM 137 mmol/L (135-144); TOTAL PROTEIN 5.3 g/dl (6.1-8.1)
[2017-05-25 05:27] LABS: PREALBUMIN < 3.0 mg/dl (17.6-36.0)
[2017-05-25] MEDS: MEROPENEM 1 GM/50ML(PMX) 50 ML IVPB ×3 (06:01→22:51)
[2017-05-25 07:08] LABS: MAGNESIUM 1.5 mg/dl (1.7-2.5)
[2017-05-25 07:08] LABS: PHOSPHORUS 4.4 mg/dl (2.5-4.9)
[2017-05-25] MEDS: GENTAMICIN 0.1% CREAM 15GM TUBE TOP ×3 (08:21→20:51)
[2017-05-25] MEDS: MEGESTROL (40 MG/ML) 10ML CUP PO ×2 (08:21→20:50)
[2017-05-25] MEDS: MAGNESIUM HYDROXIDE 30ML CUP PO ×2 (08:21→20:50)
[2017-05-25] MEDS: POTASSIUM CHLORIDE 20 MEQ POWDER FOR ORAL SOLN PO (08:21)
[2017-05-25] MEDS: BALSAM PERU/CASTOR OIL 60 GM TUBE TOP ×2 (08:22→20:51)
[2017-05-25] MEDS: VORICONAZOLE 200 MG/100 ML 100 ML IVPB ×2 (10:34→22:51)
[2017-05-25 11:06] LABS: WHITE BLOOD COUNT 0.5 10^3/ul (4.8-10.8)
[2017-05-25 11:06] LABS: ABNORMAL IP MESSAGE 1; HEMATOCRIT 21.8 % (42.0-52.0); HEMOGLOBIN 7.7 g/dl (14.0-18.0); MEAN CORPUSCULAR HEMOGLOBIN 29.4 pg (29.0-33.0); MEAN CORPUSCULAR HGB CONC 35.3 g/dl (32.0-37.0); MEAN CORPUSCULAR VOLUME 83.2 fl (82.0-101.0); POSITIVE DIFF @See below; RED BLOOD COUNT 2.62 10^6/ul (4.70-6.10); RED CELL DISTRIBUTION WIDTH 14.3 % (11.5-14.5)
[2017-05-25 11:17] LABS: PLATELET COUNT 4 10^3/UL (140-415)
[2017-05-25 11:18] LABS: ADD MAN DIFF? YES
[2017-05-25] MEDS: MAGNESIUM SULFATE 2 GM/50 ML 50 ML IVPB (11:51)
[2017-05-25 12:24] LABS: ANISOCYTOSIS 1+ (0-0); LYMPHOCYTES #M 0.4 10^3/ul (0.8-2.9); LYMPHOCYTES % (M) 99 % (15-51); MICROCYTOSIS 1+ (0-0); MONOCYTES % (M) 1 % (0-11); PLATELET ESTIMATE SIG DECREASED; POLYCHROMASIA 2+ (0-0); REACTIVE LYMPHOCYTES% (M) 1 % (0-0); SMUDGE%M 5 % (0-0)
[2017-05-25] MEDS: DIGOXIN 500 MCG INJ IV ×2 (12:42→17:46)
[2017-05-25] MEDS: TPN 1,000 ML IV (12:43)
[2017-05-25 14:41] LABS: CREATINE KINASE < 20 IU/L (23-200)
[2017-05-25 14:53] LABS: B-TYPE NATRIURETIC PEPTIDE 2870 PG/ML (0-125)
[2017-05-25 14:54] LABS: TROPONIN-I < 0.012 ng/ml (0.00-0.12)
[2017-05-25] MEDS: DAPTOMYCIN IVPB (15:32)
[2017-05-25] MEDS: SOD CHLORIDE 0.9% IVPB ×2 (15:32→17:54)
[2017-05-25] MEDS: [UNRECOGNIZED DRUG - OTHER] IVPB (17:54)
[2017-05-25 19:11] LABS: CREATINE KINASE < 20 IU/L (23-200)
[2017-05-25 19:22] LABS: CK-MB 0.45 ng/ml (0.0-2.4); TROPONIN-I < 0.012 ng/ml (0.00-0.12)
[2017-05-25] MEDS: INSULIN GLARGINE [LANtus] 3 ML PEN SC (20:53)
[2017-05-25] MEDS: METOPROLOL 5 MG INJ IV (23:14)
[2017-05-26] MEDS: INSULIN ASPART [NOVOLOG] 3 ML PEN SC ×6 (01:53→20:36)
[2017-05-26] MEDS: TPN 1,000 ML IV ×2 (05:03→18:16)
[2017-05-26] MEDS: MEROPENEM 1 GM/50ML(PMX) 50 ML IVPB ×3 (05:04→21:48)
[2017-05-26] MEDS: SOD CHLORIDE 0.9% 1,000 ML IV ×2 (05:04→09:59)
[2017-05-26 05:53] LABS: WHITE BLOOD COUNT 0.5 10^3/ul (4.8-10.8)
[2017-05-26 05:53] LABS: ABNORMAL IP MESSAGE 1; HEMATOCRIT 21.4 % (42.0-52.0); HEMOGLOBIN 7.5 g/dl (14.0-18.0); MEAN CORPUSCULAR HEMOGLOBIN 29.5 pg (29.0-33.0); MEAN CORPUSCULAR VOLUME 84.3 fl (82.0-101.0); POSITIVE DIFF @See below; RED BLOOD COUNT 2.54 10^6/ul (4.70-6.10); RED CELL DISTRIBUTION WIDTH 14.1 % (11.5-14.5)
[2017-05-26 06:02] LABS: ADD MAN DIFF? YES; PLATELET COUNT 2 10^3/UL (140-415)
[2017-05-26 06:17] LABS: ANION GAP 10 (8-16); BLOOD UREA NITROGEN 22 mg/dl (7-20); CALCIUM 8.6 mg/dl (8.4-10.2); CARBON DIOXIDE 21 mmol/L (21-31); CHLORIDE 108 mmol/L (97-110); CREATININE 0.58 mg/dl (0.61-1.24); GLUCOSE 142 mg/dl (70-220); MAGNESIUM 1.6 mg/dl (1.7-2.5); PHOSPHORUS 3.9 mg/dl (2.5-4.9); POTASSIUM 4.4 mmol/L (3.5-5.1); SODIUM 135 mmol/L (135-144)
[2017-05-26 08:15] LABS: ANISOCYTOSIS 1+ (0-0); ERYTHROBLAST% (NRBC) (M) 1 % (0-0); GIANT THROMBO% (M) 1 % (0-0); LYMPHOCYTES #M 0.4 10^3/ul (0.8-2.9); LYMPHOCYTES % (M) 99 % (15-51); METAMYELOCYTES %M 1 % (0-0); MICROCYTOSIS 1+ (0-0); PLATELET ESTIMATE SIG DECREASED; POLYCHROMASIA 1+ (0-0); SMUDGE%M 6 % (0-0)
[2017-05-26] MEDS: DIAPER RASH TOP ×2 (08:30→11:40)
[2017-05-26] MEDS: MAGNESIUM HYDROXIDE 30ML CUP PO ×2 (08:42→20:18)
[2017-05-26] MEDS: MEGESTROL (40 MG/ML) 10ML CUP PO ×2 (08:42→20:18)
[2017-05-26] MEDS: POTASSIUM CHLORIDE 20 MEQ POWDER FOR ORAL SOLN PO (08:43)
[2017-05-26] MEDS: BALSAM PERU/CASTOR OIL 60 GM TUBE TOP ×2 (08:55→20:19)
[2017-05-26] MEDS: GENTAMICIN 0.1% CREAM 15GM TUBE TOP ×3 (08:56→20:19)
[2017-05-26] MEDS: VORICONAZOLE 200 MG/100 ML 100 ML IVPB ×2 (10:26→22:54)
[2017-05-26] MEDS: METOPROLOL 5 MG INJ IV (11:17)
[2017-05-26 11:58] LABS: TRANSFUSION REACTION 1 1
[2017-05-26] MEDS: MAGNESIUM SULFATE 2 GM/50 ML 50 ML IVPB (15:21)
[2017-05-26] MEDS: SOD CHLORIDE 0.9% IVPB ×2 (16:15→17:21)
[2017-05-26] MEDS: DAPTOMYCIN IVPB (16:15)
[2017-05-26] MEDS: [UNRECOGNIZED DRUG - OTHER] IVPB (17:21)
[2017-05-26] MEDS: INSULIN GLARGINE [LANtus] 3 ML PEN SC (20:27)
[2017-05-27] MEDS: INSULIN ASPART [NOVOLOG] 3 ML PEN SC ×6 (01:15→20:34)
[2017-05-27] MEDS: SOD CHLORIDE 0.9% 1,000 ML IV ×3 (01:55→16:30)
[2017-05-27 05:38] LABS: WHITE BLOOD COUNT 0.4 10^3/ul (4.8-10.8)
[2017-05-27 05:38] LABS: ABNORMAL IP MESSAGE 1; HEMATOCRIT 18.8 % (42.0-52.0); MEAN CORPUSCULAR HEMOGLOBIN 29.7 pg (29.0-33.0); MEAN CORPUSCULAR HGB CONC 35.1 g/dl (32.0-37.0); MEAN CORPUSCULAR VOLUME 84.7 fl (82.0-101.0); MEAN PLATELET VOLUME 12.1 fl (7.4-10.4); POSITIVE DIFF @See below; RED BLOOD COUNT 2.22 10^6/ul (4.70-6.10); RED CELL DISTRIBUTION WIDTH 14.2 % (11.5-14.5)
[2017-05-27] MEDS: MEROPENEM 1 GM/50ML(PMX) 50 ML IVPB ×3 (05:40→21:44)
[2017-05-27 06:22] LABS: ANION GAP 14 (8-16); BLOOD UREA NITROGEN 25 mg/dl (7-20); CALCIUM 8.8 mg/dl (8.4-10.2); CARBON DIOXIDE 21 mmol/L (21-31); CHLORIDE 108 mmol/L (97-110); CREATININE 0.59 mg/dl (0.61-1.24); GLUCOSE 266 mg/dl (70-220); PHOSPHORUS 3.9 mg/dl (2.5-4.9); SODIUM 138 mmol/L (135-144)
[2017-05-27 06:26] LABS: HEMOGLOBIN 6.6 g/dl (14.0-18.0)
[2017-05-27 06:27] LABS: ADD MAN DIFF? YES; PLATELET COUNT 14 10^3/UL (140-415)
[2017-05-27 07:22] LABS: ADD UMIC YES; UR ASCORBIC ACID NEGATIVE (NEGATIVE); UR BACTERIA FEW /HPF (NONE SEEN); UR BILIRUBIN (Dip) NEGATIVE (NEGATIVE); UR BLOOD (Dip) 3+ mg/dL (NEGATIVE); UR CLARITY CLEAR (CLEAR); UR COLOR YELLOW (YELLOW); UR GLUCOSE (Dip) 1+ mg/dL (NEGATIVE); UR KETONES (Dip) NEGATIVE (NEGATIVE); UR LEUKOCYTE ESTERASE (Dip) NEGATIVE Leu/ul (NEGATIVE); UR NITRITE (Dip) NEGATIVE (NEGATIVE); UR RBC > 182 /HPF (0-5); UR SPECIFIC GRAVITY (Dip) 1.011 (1.003-1.030); UR TOTAL PROTEIN (Dip) 1+ mg/dl (NEGATIVE); UR UROBILINOGEN (Dip) NEGATIVE (NEGATIVE); UR WBC 4 /HPF (0-5)
[2017-05-27] MEDS: POTASSIUM CHLORIDE 20 MEQ POWDER FOR ORAL SOLN PO (08:51)
[2017-05-27] MEDS: MEGESTROL (40 MG/ML) 10ML CUP PO ×2 (08:51→20:27)
[2017-05-27] MEDS: MAGNESIUM HYDROXIDE 30ML CUP PO ×2 (08:51→20:27)
[2017-05-27] MEDS: GENTAMICIN 0.1% CREAM 15GM TUBE TOP ×3 (08:51→20:27)
[2017-05-27] MEDS: TPN 1,000 ML IV (08:51)
[2017-05-27] MEDS: DIAPER RASH TOP (08:52)
[2017-05-27] MEDS: BALSAM PERU/CASTOR OIL 60 GM TUBE TOP ×2 (08:52→20:28)
[2017-05-27 09:01] LABS: ANISOCYTOSIS 1+ (0-0); ERYTHROBLAST% (NRBC) (M) 1 % (0-0); GIANT THROMBO% (M) 2 % (0-0); LYMPHOCYTES #M 0.3 10^3/ul (0.8-2.9); LYMPHOCYTES % (M) 96 % (15-51); MICROCYTOSIS 1+ (0-0); MONOCYTES % (M) 1 % (0-11); PLATELET ESTIMATE SIG DECREASED; POLYCHROMASIA 3+ (0-0); REACTIVE LYMPHOCYTES% (M) 4 % (0-0); SMUDGE%M 6 % (0-0)
[2017-05-27 09:38] LABS: IMMEDIATE SPIN CROSSMATCH 1 2
[2017-05-27 09:50] LABS: Allen Test ACCEPTAB; Arterial Base Excess -1.8 mmol/L (-3.0-3); Arterial Blood Gas Oxygen Sat 94.9 mmHG (95.0-98.0); Arterial COHb 0.9 % (0.0-3.0); Arterial Fraction of Oxyhgb 93.9 % (93.0-99.0); Arterial HCO3 20.8 mmol/L (22.0-26.0); Arterial MetHb 0.2 % (0.0-1.5); Arterial Total Hemglobin 7.5 g/dl (12.0-18.0); Arterial pCO2 26.5 mmhg (35-45); MODE ROOM AIR; Site Right Radial
[2017-05-27] MEDS: VORICONAZOLE 200 MG/100 ML 100 ML IVPB ×2 (11:20→22:32)
[2017-05-27] MEDS: DAPTOMYCIN IVPB (15:04)
[2017-05-27] MEDS: SOD CHLORIDE 0.9% IVPB ×2 (15:04→17:04)
[2017-05-27] MEDS: [UNRECOGNIZED DRUG - OTHER] IVPB (17:04)
[2017-05-27] MEDS: INSULIN GLARGINE [LANtus] 3 ML PEN SC (20:36)
[2017-05-28] MEDS ORDERED: GENTAMICIN IV PER PHARMACY XX
[2017-05-28] MEDS: INSULIN ASPART [NOVOLOG] 3 ML PEN SC ×6 (00:39→20:46)
[2017-05-28] MEDS: TPN 1,000 ML IV ×2 (00:40→16:19)
[2017-05-28] MEDS: GENTAMICIN 150 MG in DEXTROSE 5% 100 ML IVPB (01:35)
[2017-05-28] MEDS: MEROPENEM 1 GM/50ML(PMX) 50 ML IVPB ×3 (05:54→21:14)
[2017-05-28 06:18] LABS: ABNORMAL IP MESSAGE 1; HEMATOCRIT 21.4 % (42.0-52.0); HEMOGLOBIN 7.3 g/dl (14.0-18.0); MEAN CORPUSCULAR HGB CONC 34.1 g/dl (32.0-37.0); POSITIVE DIFF @See below; RED BLOOD COUNT 2.61 10^6/ul (4.70-6.10); RED CELL DISTRIBUTION WIDTH 16.4 % (11.5-14.5)
[2017-05-28 06:18] LABS: WHITE BLOOD COUNT 0.4 10^3/ul (4.8-10.8)
[2017-05-28 06:43] LABS: ANION GAP 13 (8-16); BLOOD UREA NITROGEN 27 mg/dl (7-20); CALCIUM 8.9 mg/dl (8.4-10.2); CARBON DIOXIDE 21 mmol/L (21-31); CHLORIDE 108 mmol/L (97-110); CREATININE 0.54 mg/dl (0.61-1.24); GLUCOSE 138 mg/dl (70-220); POTASSIUM 4.5 mmol/L (3.5-5.1); SODIUM 137 mmol/L (135-144)
[2017-05-28 06:51] LABS: PLATELET COUNT 4 10^3/UL (140-415)
[2017-05-28 06:52] LABS: ADD MAN DIFF? YES
[2017-05-28] MEDS: SOD CHLORIDE 0.9% 1,000 ML IV ×2 (07:55→20:36)
[2017-05-28] MEDS: POTASSIUM CHLORIDE 20 MEQ POWDER FOR ORAL SOLN PO (08:58)
[2017-05-28] MEDS: MEGESTROL (40 MG/ML) 10ML CUP PO ×2 (08:58→20:36)
[2017-05-28] MEDS: MAGNESIUM HYDROXIDE 30ML CUP PO ×2 (08:58→20:36)
[2017-05-28] MEDS: BALSAM PERU/CASTOR OIL 60 GM TUBE TOP ×2 (09:18→20:37)
[2017-05-28] MEDS: GENTAMICIN 0.1% CREAM 15GM TUBE TOP ×3 (09:18→20:37)
[2017-05-28] MEDS: DIAPER RASH TOP (09:19)
[2017-05-28 09:34] LABS: ANISOCYTOSIS 1+ (0-0); BURR CELLS 1+ (0-0); LYMPHOCYTES #M 0.3 10^3/ul (0.8-2.9); LYMPHOCYTES % (M) 99 % (15-51); MICROCYTOSIS 1+ (0-0); MONOCYTES % (M) 1 % (0-11); PLATELET ESTIMATE SIG DECREASED; POIKILOCYTOSIS 1+ (0-0); POLYCHROMASIA 3+ (0-0); SEGMENTED NEUTROPHILS (M) % 1 % (39-77); SMUDGE%M 10 % (0-0)
[2017-05-28 10:38] LABS: TYPE AND SCREEN 1
[2017-05-28] MEDS: VORICONAZOLE 200 MG/100 ML 100 ML IVPB ×2 (11:01→21:38)
[2017-05-28] MEDS: FUROSEMIDE 40 MG INJ IV (12:30)
[2017-05-28] MEDS: GENTAMICIN 350 MG in DEXTROSE 5% 100 ML IVPB (12:30)
[2017-05-28 14:14] LABS: POST-TRANSFUSION BILIRUBIN 1.5 mg/dl
[2017-05-28 14:14] LABS: PRETRANSFUSION BILIRUBIN 1.7 mg/dl
[2017-05-28] MEDS: ALBUMIN HUMAN 25% 50 ML IV ×2 (15:39→23:03)
[2017-05-28] MEDS: SOD CHLORIDE 0.9% IVPB ×2 (16:14→16:59)
[2017-05-28] MEDS: DAPTOMYCIN IVPB (16:14)
[2017-05-28] MEDS: [UNRECOGNIZED DRUG - OTHER] IVPB (16:59)
[2017-05-28] MEDS: INSULIN GLARGINE [LANtus] 3 ML PEN SC (20:45)
[2017-05-29] MEDS: INSULIN ASPART [NOVOLOG] 3 ML PEN SC ×6 (00:36→21:00)
[2017-05-29] MEDS: MEROPENEM 1 GM/50ML(PMX) 50 ML IVPB ×3 (05:26→21:15)
[2017-05-29] MEDS: TPN 1,000 ML IV ×2 (05:58→17:13)
[2017-05-29 06:01] LABS: ABNORMAL IP MESSAGE 1; HEMATOCRIT 16.8 % (42.0-52.0); MEAN CORPUSCULAR HEMOGLOBIN 27.9 pg (29.0-33.0); MEAN CORPUSCULAR HGB CONC 34.5 g/dl (32.0-37.0); MEAN CORPUSCULAR VOLUME 80.8 fl (82.0-101.0); POSITIVE DIFF @See below; RED BLOOD COUNT 2.08 10^6/ul (4.70-6.10); RED CELL DISTRIBUTION WIDTH 16.5 % (11.5-14.5)
[2017-05-29 06:01] LABS: WHITE BLOOD COUNT 0.3 10^3/ul (4.8-10.8)
[2017-05-29] MEDS: ALBUMIN HUMAN 25% 50 ML IV (06:02)
[2017-05-29 06:13] LABS: ANION GAP 13 (8-16); BLOOD UREA NITROGEN 37 mg/dl (7-20); CARBON DIOXIDE 23 mmol/L (21-31); CHLORIDE 109 mmol/L (97-110); CREATININE 0.66 mg/dl (0.61-1.24); GLUCOSE 124 mg/dl (70-220); MAGNESIUM 1.8 mg/dl (1.7-2.5); PHOSPHORUS 4.3 mg/dl (2.5-4.9); POTASSIUM 4.2 mmol/L (3.5-5.1); SODIUM 141 mmol/L (135-144)
[2017-05-29 06:20] LABS: LACTIC ACID 1.5 mmol/L (0.5-2.0)
[2017-05-29 06:22] LABS: AADO2 Arterial 46.8 mmHg (7.0-24.0); Allen Test ACCEPTAB; Arterial Base Excess 0.1 mmol/L (-3.0-3); Arterial Blood Gas Oxygen Sat 94.8 mmHG (95.0-98.0); Arterial COHb 1.3 % (0.0-3.0); Arterial HCO3 22.1 mmol/L (22.0-26.0); Arterial MetHb 0.6 % (0.0-1.5); Arterial Total Hemglobin 6.6 g/dl (12.0-18.0); Arterial pCO2 25.3 mmhg (35-45); MODE ROOM AIR; Site Right Radial
[2017-05-29 06:34] LABS: ADD MAN DIFF? YES
[2017-05-29 06:36] LABS: HEMOGLOBIN 5.8 g/dl (14.0-18.0); PLATELET COUNT 9 10^3/UL (140-415)
[2017-05-29 07:57] LABS: IMMEDIATE SPIN CROSSMATCH 1 2
[2017-05-29] MEDS: MEGESTROL (40 MG/ML) 10ML CUP PO ×2 (08:31→21:00)
[2017-05-29] MEDS: MAGNESIUM HYDROXIDE 30ML CUP PO (08:31)
[2017-05-29] MEDS: GENTAMICIN 0.1% CREAM 15GM TUBE TOP ×3 (08:32→21:16)
[2017-05-29] MEDS: POTASSIUM CHLORIDE 20 MEQ POWDER FOR ORAL SOLN PO (08:32)
[2017-05-29] MEDS: DIAPER RASH TOP (08:32)
[2017-05-29] MEDS: BALSAM PERU/CASTOR OIL 60 GM TUBE TOP ×2 (08:32→21:15)
[2017-05-29] MEDS: VORICONAZOLE 200 MG/100 ML 100 ML IVPB ×2 (09:45→22:28)
[2017-05-29 13:03] LABS: ANISOCYTOSIS 2+ (0-0); BAND NEUTROPHILS % (M) 2 % (0-4); BASOPHILS % (M) 1 % (0-2); BURR CELLS 1+ (0-0); EOSINOPHILS % (M) 1 % (0-7); GIANT THROMBO% (M) 2 % (0-0); HYPOCHROMASIA 2+ (0-0); LYMPHOCYTES #M 0.2 10^3/ul (0.8-2.9); LYMPHOCYTES % (M) 90 % (15-51); METAMYELOCYTES %M 3 % (0-0); MYELOCYTES % (M) 1 % (0-0); OVALOCYTES 1+ (0-0); PLATELET ESTIMATE DECREASED; PROMYELOCYTES % (M) 1 % (0-0); SEGMENTED NEUTROPHILS (M) % 1 % (39-77); SMUDGE%M 2 % (0-0)
[2017-05-29] MEDS: SOD CHLORIDE 0.9% IVPB ×2 (15:20→17:00)
[2017-05-29] MEDS: DAPTOMYCIN IVPB (15:20)
[2017-05-29] MEDS: SOD CHLORIDE 0.9% 1,000 ML IV (16:00)
[2017-05-29] MEDS: [UNRECOGNIZED DRUG - OTHER] IVPB (17:00)
[2017-05-29 18:35] LABS: HEMATOCRIT 24.4 % (42.0-52.0); HEMOGLOBIN 8.7 g/dl (14.0-18.0)
[2017-05-29 18:58] LABS: ABNORMAL IP MESSAGE 1; HEMATOCRIT 24.5 % (42.0-52.0); HEMOGLOBIN 8.6 g/dl (14.0-18.0); MEAN CORPUSCULAR HEMOGLOBIN 28.9 pg (29.0-33.0); MEAN CORPUSCULAR HGB CONC 35.1 g/dl (32.0-37.0); MEAN CORPUSCULAR VOLUME 82.2 fl (82.0-101.0); POSITIVE DIFF @See below; RED BLOOD COUNT 2.98 10^6/ul (4.70-6.10); RED CELL DISTRIBUTION WIDTH 16.1 % (11.5-14.5)
[2017-05-29 18:58] LABS: WHITE BLOOD COUNT 0.5 10^3/ul (4.8-10.8)
[2017-05-29 19:11] LABS: ADD MAN DIFF? YES
[2017-05-29 19:12] LABS: PLATELET COUNT 4 10^3/UL (140-415)
[2017-05-29 20:41] LABS: ANISOCYTOSIS 1+ (0-0); LYMPHOCYTES #M 0.4 10^3/ul (0.8-2.9); LYMPHOCYTES % (M) 97 % (15-51); MICROCYTOSIS 1+ (0-0); POIKILOCYTOSIS 1+ (0-0); SEGMENTED NEUTROPHILS (M) % 3 % (39-77)
[2017-05-29] MEDS: INSULIN GLARGINE [LANtus] 3 ML PEN SC (21:31)
[2017-05-29 22:56] LABS: TYPE AND SCREEN 1
[2017-05-30] MEDS: INSULIN ASPART [NOVOLOG] 3 ML PEN SC ×6 (01:00→20:38)
[2017-05-30] MEDS: DEXTROSE 50% 50 ML SYRINGE IV (01:14)
[2017-05-30 05:17] LABS: ABNORMAL IP MESSAGE 1; HEMATOCRIT 22.8 % (42.0-52.0); MEAN CORPUSCULAR HEMOGLOBIN 28.7 pg (29.0-33.0); MEAN CORPUSCULAR HGB CONC 35.1 g/dl (32.0-37.0); MEAN CORPUSCULAR VOLUME 81.7 fl (82.0-101.0); MEAN PLATELET VOLUME 9.8 fl (7.4-10.4); POSITIVE DIFF @See below; RED BLOOD COUNT 2.79 10^6/ul (4.70-6.10); RED CELL DISTRIBUTION WIDTH 16.4 % (11.5-14.5)
[2017-05-30 05:17] LABS: WHITE BLOOD COUNT 0.4 10^3/ul (4.8-10.8)
[2017-05-30] MEDS: MEROPENEM 1 GM/50ML(PMX) 50 ML IVPB ×3 (05:24→21:52)
[2017-05-30 05:32] LABS: PLATELET COUNT 19 10^3/UL (140-415)
[2017-05-30 05:33] LABS: ADD MAN DIFF? YES
[2017-05-30 05:34] LABS: PHOSPHORUS 4.3 mg/dl (2.5-4.9)
[2017-05-30 05:34] LABS: ANION GAP 11 (8-16); BLOOD UREA NITROGEN 37 mg/dl (7-20); CALCIUM 9.2 mg/dl (8.4-10.2); CARBON DIOXIDE 24 mmol/L (21-31); CHLORIDE 112 mmol/L (97-110); CREATININE 0.67 mg/dl (0.61-1.24); GLUCOSE 95 mg/dl (70-220); MAGNESIUM 1.7 mg/dl (1.7-2.5); POTASSIUM 3.8 mmol/L (3.5-5.1); SODIUM 143 mmol/L (135-144)
[2017-05-30] MEDS: TPN 1,000 ML IV ×2 (06:15→21:50)
[2017-05-30] MEDS: SOD CHLORIDE 0.9% 1,000 ML IV ×2 (06:28→22:02)
[2017-05-30 07:15] LABS: ANISOCYTOSIS 1+ (0-0); BAND NEUTROPHILS % (M) 1 % (0-4); GIANT THROMBO% (M) 1 % (0-0); LYMPHOCYTES #M 0.3 10^3/ul (0.8-2.9); LYMPHOCYTES % (M) 93 % (15-51); METAMYELOCYTES %M 2 % (0-0); MICROCYTOSIS 1+ (0-0); MONOCYTES % (M) 1 % (0-11); PLATELET ESTIMATE SIG DECREASED; POIKILOCYTOSIS 2+ (0-0); POLYCHROMASIA 2+ (0-0); REACTIVE LYMPHOCYTES% (M) 3 % (0-0); SMUDGE%M 1 % (0-0)
[2017-05-30] MEDS: MEGESTROL (40 MG/ML) 10ML CUP PO ×2 (08:48→20:38)
[2017-05-30] MEDS: POTASSIUM CHLORIDE 20 MEQ POWDER FOR ORAL SOLN PO (08:48)
[2017-05-30] MEDS: BALSAM PERU/CASTOR OIL 60 GM TUBE TOP ×2 (08:54→20:39)
[2017-05-30] MEDS: GENTAMICIN 0.1% CREAM 15GM TUBE TOP ×3 (08:55→20:39)
[2017-05-30] MEDS: VORICONAZOLE 200 MG/100 ML 100 ML IVPB ×2 (10:30→22:05)
[2017-05-30] MEDS: SOD CHLORIDE 0.9% 500 ML IV (11:00)
[2017-05-30] MEDS: DIGOXIN 500 MCG INJ IV (11:00)
[2017-05-30 11:44] LABS: INFLUENZA VIRUS A/B SOURCE NASOPHARYNGEAL
[2017-05-30] MEDS: GENTAMICIN 350 MG in DEXTROSE 5% 100 ML IVPB (12:00)
[2017-05-30] MEDS: SOD CHLORIDE 0.9% IVPB (15:14)
[2017-05-30] MEDS: DAPTOMYCIN IVPB (15:14)
[2017-05-30] MEDS: INSULIN GLARGINE [LANtus] 3 ML PEN SC (20:45)
[2017-05-31 00:56] LABS: FLU H1H3 SOURCE NASOPHARYNGEAL; INFLUENZA A H1 NOT DETECTED; INFLUENZA A H3 NOT DETECTED
[2017-05-31] MEDS: INSULIN ASPART [NOVOLOG] 3 ML PEN SC ×6 (01:00→21:00)
[2017-05-31] MEDS ORDERED: ALBUTEROL/IPRATROPIUM (NEB) 3 ML AMP (02:46)
[2017-05-31 03:10] LABS: AADO2 Arterial 444.8 mmHg (7.0-24.0); Allen Test ACCEPTAB; Arterial Base Excess -3.1 mmol/L (-3.0-3); Arterial Blood Gas Oxygen Sat 98.8 mmHG (95.0-98.0); Arterial COHb 0.7 % (0.0-3.0); Arterial Fraction of Oxyhgb 97.8 % (93.0-99.0); Arterial MetHb 0.3 % (0.0-1.5); Arterial Total Hemglobin 10.3 g/dl (12.0-18.0); Arterial pCO2 45.5 mmhg (35-45); MODE MASK - NRB; Site Right Radial
[2017-05-31] MEDS ORDERED: PHENYLephrine 20MG IN 250 ML 250 ML IV (04:30)
[2017-05-31] MEDS: ALBUMIN HUMAN 25% 100 ML IV (04:31)
[2017-05-31] MEDS ORDERED: ALBUTEROL/IPRATROPIUM (NEB) 3 ML AMP HHN ×2 (05:00)
[2017-05-31] MEDS: MEROPENEM 1 GM/50ML(PMX) 50 ML IVPB ×3 (05:44→21:21)
[2017-05-31 06:19] LABS: ABNORMAL IP MESSAGE 1; HEMATOCRIT 19.8 % (42.0-52.0); MEAN CORPUSCULAR HEMOGLOBIN 28.5 pg (29.0-33.0); MEAN CORPUSCULAR HGB CONC 34.3 g/dl (32.0-37.0); MEAN CORPUSCULAR VOLUME 82.8 fl (82.0-101.0); POSITIVE DIFF @See below; RED BLOOD COUNT 2.39 10^6/ul (4.70-6.10); RED CELL DISTRIBUTION WIDTH 16.6 % (11.5-14.5)
[2017-05-31 06:19] LABS: WHITE BLOOD COUNT 0.4 10^3/ul (4.8-10.8)
[2017-05-31 06:27] LABS: HEMOGLOBIN 6.8 g/dl (14.0-18.0); PLATELET COUNT 2 10^3/UL (140-415)
[2017-05-31 06:28] LABS: ADD MAN DIFF? YES
[2017-05-31 06:50] LABS: ALANINE AMINOTRANSFERASE 23 IU/L (13-69); ALBUMIN 2.1 g/dl (3.3-4.9); ALBUMIN/GLOBULIN RATIO 0.67; ALKALINE PHOSPHATASE 87 IU/L (42-121); ANION GAP 11 (8-16); ASPARTATE AMINO TRANSFERASE 9 IU/L (15-46); BILIRUBIN,INDIRECT 0.9 mg/dl (0-1.1); BLOOD UREA NITROGEN 40 mg/dl (7-20); CALCIUM 9.2 mg/dl (8.4-10.2); CARBON DIOXIDE 22 mmol/L (21-31); CHLORIDE 115 mmol/L (97-110); CREATININE 0.69 mg/dl (0.61-1.24); GLUCOSE 156 mg/dl (70-220); POTASSIUM 3.7 mmol/L (3.5-5.1); SODIUM 144 mmol/L (135-144); TOTAL PROTEIN 5.2 g/dl (6.1-8.1)
[2017-05-31 07:06] LABS: PHOSPHORUS 5.1 mg/dl (2.5-4.9)
[2017-05-31 07:06] LABS: MAGNESIUM 1.7 mg/dl (1.7-2.5)
[2017-05-31 07:30] LABS: ANISOCYTOSIS 1+ (0-0); ERYTHROBLAST% (NRBC) (M) 1 % (0-0); GIANT THROMBO% (M) 1 % (0-0); LYMPHOCYTES #M 0.3 10^3/ul (0.8-2.9); LYMPHOCYTES % (M) 99 % (15-51); MICROCYTOSIS 1+ (0-0); PLATELET ESTIMATE SIG DECREASED; POIKILOCYTOSIS 1+ (0-0); SEGMENTED NEUTROPHILS (M) % 1 % (39-77); SMUDGE%M 2 % (0-0)
[2017-05-31] MEDS: SOD CHLORIDE 0.9% 1,000 ML IV ×2 (08:00→21:21)
[2017-05-31] MEDS: GENTAMICIN 0.1% CREAM 15GM TUBE TOP ×4 (09:00→21:21)
[2017-05-31] MEDS: BALSAM PERU/CASTOR OIL 60 GM TUBE TOP ×3 (09:00→21:21)
[2017-05-31] MEDS: MEGESTROL (40 MG/ML) 10ML CUP PO ×2 (09:00→21:00)
[2017-05-31] MEDS: POTASSIUM CHLORIDE 20 MEQ POWDER FOR ORAL SOLN PO (09:00)
[2017-05-31 09:50] LABS: IMMEDIATE SPIN CROSSMATCH 1 1
[2017-05-31] MEDS: VORICONAZOLE 200 MG/100 ML 100 ML IVPB ×3 (10:15→21:24)
[2017-05-31] MEDS: TPN 1,000 ML IV (12:30)
[2017-05-31] MEDS: ALBUMIN HUMAN 5% 250 ML IV (16:32)
[2017-05-31] MEDS: DAPTOMYCIN IVPB (16:33)
[2017-05-31] MEDS: SOD CHLORIDE 0.9% IVPB (16:33)
[2017-05-31 18:30] LABS: ABNORMAL IP MESSAGE 1; HEMATOCRIT 22.6 % (42.0-52.0); MEAN CORPUSCULAR HEMOGLOBIN 29.4 pg (29.0-33.0); MEAN CORPUSCULAR HGB CONC 35.4 g/dl (32.0-37.0); MEAN CORPUSCULAR VOLUME 83.1 fl (82.0-101.0); MEAN PLATELET VOLUME 8.7 fl (7.4-10.4); POSITIVE DIFF @See below; RED BLOOD COUNT 2.72 10^6/ul (4.70-6.10); RED CELL DISTRIBUTION WIDTH 16.4 % (11.5-14.5)
[2017-05-31 18:30] LABS: WHITE BLOOD COUNT 0.4 10^3/ul (4.8-10.8)
[2017-05-31 18:40] LABS: ADD MAN DIFF? YES; PLATELET COUNT 14 10^3/UL (140-415)
[2017-05-31 20:03] LABS: PLATELET MORPHOLOGY COMMENT @See below
[2017-05-31 20:23] LABS: BAND NEUTROPHILS % (M) 1 % (0-4); LYMPHOCYTES # 0.4 10^3/ul (0.8-2.9); LYMPHOCYTES #M 0.3 10^3/ul (0.8-2.9); LYMPHOCYTES % (M) 96 % (15-51); MONOCYTES % (M) 1 % (0-11); SEGMENTED NEUTROPHILS (M) % 2 % (39-77)
[2017-05-31 21:11] LABS: CRYPTOCOCCAL ANTIGEN - SOURCE Serum
[2017-05-31] MEDS: INSULIN GLARGINE [LANtus] 3 ML PEN SC (21:24)
[2017-05-31 22:41] LABS: HISTOPLASMA GALACTOMANNAN AG U <0.5 ng/mL
[2017-06-01] MEDS: INSULIN ASPART [NOVOLOG] 3 ML PEN SC ×6 (01:00→20:35)
[2017-06-01] MEDS: TPN 1,000 ML IV ×2 (01:59→16:08)
[2017-06-01] MEDS: MEROPENEM 1 GM/50ML(PMX) 50 ML IVPB ×3 (05:22→21:37)
[2017-06-01 06:35] LABS: ABNORMAL IP MESSAGE 1; HEMATOCRIT 22.3 % (42.0-52.0); HEMOGLOBIN 7.9 g/dl (14.0-18.0); MEAN CORPUSCULAR HEMOGLOBIN 29.7 pg (29.0-33.0); MEAN CORPUSCULAR HGB CONC 35.4 g/dl (32.0-37.0); MEAN CORPUSCULAR VOLUME 83.8 fl (82.0-101.0); MEAN PLATELET VOLUME 10.1 fl (7.4-10.4); POSITIVE DIFF @See below; RED BLOOD COUNT 2.66 10^6/ul (4.70-6.10); RED CELL DISTRIBUTION WIDTH 16.6 % (11.5-14.5)
[2017-06-01 06:35] LABS: WHITE BLOOD COUNT 0.6 10^3/ul (4.8-10.8)
[2017-06-01 06:51] LABS: ANION GAP 13 (8-16); BLOOD UREA NITROGEN 38 mg/dl (7-20); CALCIUM 8.7 mg/dl (8.4-10.2); CARBON DIOXIDE 22 mmol/L (21-31); CHLORIDE 119 mmol/L (97-110); CREATININE 0.67 mg/dl (0.61-1.24); GLUCOSE 140 mg/dl (70-220); MAGNESIUM 1.8 mg/dl (1.7-2.5); PHOSPHORUS 5.1 mg/dl (2.5-4.9); POTASSIUM 3.7 mmol/L (3.5-5.1); SODIUM 150 mmol/L (135-144)
[2017-06-01 06:52] LABS: ADD MAN DIFF? YES; PLATELET COUNT 8 10^3/UL (140-415)
[2017-06-01 07:10] LABS: CREATINE KINASE < 20 IU/L (23-200)
[2017-06-01] MEDS: BALSAM PERU/CASTOR OIL 60 GM TUBE TOP ×2 (08:42→20:35)
[2017-06-01] MEDS: GENTAMICIN 0.1% CREAM 15GM TUBE TOP ×3 (08:42→20:35)
[2017-06-01] MEDS: POTASSIUM CHLORIDE 20 MEQ POWDER FOR ORAL SOLN PO (08:45)
[2017-06-01] MEDS: MEGESTROL (40 MG/ML) 10ML CUP PO ×2 (08:45→20:35)
[2017-06-01 09:23] LABS: ANISOCYTOSIS 1+ (0-0); BASOPHILS % (M) 1 % (0-2); ERYTHROBLAST% (NRBC) (M) 3 % (0-0); GIANT THROMBO% (M) 4 % (0-0); LYMPHOCYTES #M 0.5 10^3/ul (0.8-2.9); LYMPHOCYTES % (M) 88 % (15-51); MONOCYTES % (M) 1 % (0-11); PLATELET ESTIMATE SIG DECREASED; POIKILOCYTOSIS 2+ (0-0); POLYCHROMASIA 3+ (0-0); REACTIVE LYMPHOCYTES% (M) 2 % (0-0); SEGMENTED NEUTROPHILS (M) % 8 % (39-77); SMUDGE%M 9 % (0-0)
[2017-06-01] MEDS: DEXTROSE 5% 1,000 ML IV (10:06)
[2017-06-01] MEDS ORDERED: DEXTROSE 5% 1,000 ML IV (11:00)
[2017-06-01] MEDS: VORICONAZOLE 200 MG/100 ML 100 ML IVPB ×2 (12:27→21:37)
[2017-06-01 12:53] LABS: GENTAMICIN,TROUGH < 0.6 ug/ml (1.0-2.0)
[2017-06-01] MEDS: GENTAMICIN 350 MG in DEXTROSE 5% 100 ML IVPB (13:30)
[2017-06-01] MEDS: DIGOXIN 500 MCG INJ IV (15:49)
[2017-06-01] MEDS: DAPTOMYCIN IVPB (15:52)
[2017-06-01] MEDS: SOD CHLORIDE 0.9% IVPB (15:52)
[2017-06-01] MEDS: INSULIN GLARGINE [LANtus] 3 ML PEN SC (20:39)
[2017-06-01] MEDS: SOD CHLORIDE 0.9% 500 ML IV (23:15)
[2017-06-02] MEDS: morphine (DRIP) 100 MG/100 ML 100 ML IV (01:14)
[2017-06-02] MEDS: MEROPENEM 1 GM/50ML(PMX) 50 ML IVPB ×3 (06:35→22:41)
[2017-06-02] MEDS: TPN 1,000 ML IV (07:47)
[2017-06-02] MEDS: POTASSIUM CHLORIDE 20 MEQ POWDER FOR ORAL SOLN PO (09:00)
[2017-06-02] MEDS: MEGESTROL (40 MG/ML) 10ML CUP PO ×2 (09:00→21:00)
[2017-06-02] MEDS: BALSAM PERU/CASTOR OIL 60 GM TUBE TOP ×2 (09:37→21:00)
[2017-06-02] MEDS: GENTAMICIN 0.1% CREAM 15GM TUBE TOP ×3 (09:37→21:00)
[2017-06-02] MEDS: VORICONAZOLE 200 MG/100 ML 100 ML IVPB ×2 (09:55→22:40)
[2017-06-02] MEDS ORDERED: NORepinephrine 8MG/250 ML (PMX 0 ML (10:07)
[2017-06-02] MEDS ORDERED: PHENYLephrine 20MG IN 250 ML 250 ML (10:11)
[2017-06-02] MEDS: PHENYLephrine 40 MG in DEXTROSE 5% 496 ML IV ×2 (10:31→15:10)
[2017-06-02 11:33] LABS: WHITE BLOOD COUNT 0.5 10^3/ul (4.8-10.8)
[2017-06-02 11:33] LABS: ABNORMAL IP MESSAGE 1; HEMATOCRIT 22.2 % (42.0-52.0); HEMOGLOBIN 7.5 g/dl (14.0-18.0); MEAN CORPUSCULAR HEMOGLOBIN 29.3 pg (29.0-33.0); MEAN CORPUSCULAR HGB CONC 33.8 g/dl (32.0-37.0); MEAN CORPUSCULAR VOLUME 86.7 fl (82.0-101.0); POSITIVE DIFF @See below; RED BLOOD COUNT 2.56 10^6/ul (4.70-6.10); RED CELL DISTRIBUTION WIDTH 17.1 % (11.5-14.5)
[2017-06-02 11:47] LABS: ADD MAN DIFF? YES
[2017-06-02 11:52] LABS: PLATELET COUNT 2 10^3/UL (140-415)
[2017-06-02 11:56] LABS: ANION GAP 15 (8-16); BLOOD UREA NITROGEN 52 mg/dl (7-20); CARBON DIOXIDE 23 mmol/L (21-31); CHLORIDE 116 mmol/L (97-110); CREATININE 0.75 mg/dl (0.61-1.24); GLUCOSE 180 mg/dl (70-220); MAGNESIUM 2.4 mg/dl (1.7-2.5); POTASSIUM 4.6 mmol/L (3.5-5.1); SODIUM 149 mmol/L (135-144)
[2017-06-02 13:10] LABS: ANISOCYTOSIS 3+ (0-0); BAND NEUTROPHILS % (M) 2 % (0-4); BASOPHILS % (M) 1 % (0-2); ERYTHROBLAST% (NRBC) (M) 3 % (0-0); HYPOCHROMASIA 3+ (0-0); LYMPHOCYTES #M 0.4 10^3/ul (0.8-2.9); LYMPHOCYTES % (M) 90 % (15-51); MICROCYTOSIS 3+ (0-0); PLATELET ESTIMATE SIG DECREASED; POLYCHROMASIA 3+ (0-0); SEGMENTED NEUTROPHILS (M) % 7 % (39-77); SMUDGE%M 5 % (0-0)
[2017-06-02] MEDS: SOD CHLORIDE 0.9% IVPB (15:11)
[2017-06-02] MEDS: DAPTOMYCIN IVPB (15:11)
[2017-06-02 15:34] LABS: TYPE AND SCREEN 1
[2017-06-02] MEDS: FILGRASTIM 480 MCG INJ SC (20:09)
[2017-06-02] MEDS: ATROPINE 1 MG/10 ML SYRINGE IV (20:14)
[2017-06-02] MEDS: INSULIN GLARGINE [LANtus] 3 ML PEN SC (20:25)
[2017-06-02] MEDS ORDERED: ATROPINE 1 MG/10 ML SYRINGE IV (21:00)
[2017-06-02] MEDS: INSULIN ASPART [NOVOLOG] 3 ML PEN SC (21:12)
[2017-06-02 22:58] LABS: LACTIC ACID 1.9 mmol/L (0.5-2.0)
[2017-06-03] MEDS: TPN 1,000 ML IV ×2 (00:02→11:31)
[2017-06-03] MEDS: PHENYLephrine 40 MG in DEXTROSE 5% 496 ML IV ×4 (01:17→13:28)
[2017-06-03] MEDS: INSULIN ASPART [NOVOLOG] 3 ML PEN SC ×4 (01:18→13:00)
[2017-06-03 05:55] LABS: ABNORMAL IP MESSAGE 1; HEMATOCRIT 21.8 % (42.0-52.0); HEMOGLOBIN 7.1 g/dl (14.0-18.0); MEAN CORPUSCULAR HEMOGLOBIN 28.4 pg (29.0-33.0); MEAN CORPUSCULAR HGB CONC 32.6 g/dl (32.0-37.0); MEAN CORPUSCULAR VOLUME 87.2 fl (82.0-101.0); MEAN PLATELET VOLUME 9.5 fl (7.4-10.4)
[2017-06-03 05:55] LABS: WHITE BLOOD COUNT 0.7 10^3/ul (4.8-10.8)
[2017-06-03] MEDS: MEROPENEM 1 GM/50ML(PMX) 50 ML IVPB ×2 (06:23→14:00)
[2017-06-03 06:45] LABS: ADD UMIC YES; UR ASCORBIC ACID NEGATIVE (NEGATIVE); UR BILIRUBIN (Dip) NEGATIVE (NEGATIVE); UR BLOOD (Dip) 3+ mg/dL (NEGATIVE); UR CLARITY CLEAR (CLEAR); UR COLOR AMBER (YELLOW); UR GLUCOSE (Dip) NEGATIVE (NEGATIVE); UR KETONES (Dip) NEGATIVE (NEGATIVE); UR LEUKOCYTE ESTERASE (Dip) NEGATIVE Leu/ul (NEGATIVE); UR MUCUS FEW /HPF (NONE SEEN); UR NITRITE (Dip) NEGATIVE (NEGATIVE); UR RBC 140 /HPF (0-5); UR TOTAL PROTEIN (Dip) NEGATIVE (NEGATIVE); UR UROBILINOGEN (Dip) 1+ mg/dL (NEGATIVE); UR WBC 5 /HPF (0-5)
[2017-06-03 06:48] LABS: PLATELET COUNT 9 10^3/UL (140-415)
[2017-06-03 06:49] LABS: ADD MAN DIFF? YES
[2017-06-03 07:03] LABS: ANION GAP 13 (8-16); BLOOD UREA NITROGEN 39 mg/dl (7-20); CARBON DIOXIDE 27 mmol/L (21-31); CHLORIDE 115 mmol/L (97-110); CREATININE 0.75 mg/dl (0.61-1.24); GLUCOSE 159 mg/dl (70-220); SODIUM 151 mmol/L (135-144)
[2017-06-03] MEDS: GENTAMICIN 0.1% CREAM 15GM TUBE TOP ×2 (08:40→13:00)
[2017-06-03] MEDS: BALSAM PERU/CASTOR OIL 60 GM TUBE TOP (08:40)
[2017-06-03] MEDS: MEGESTROL (40 MG/ML) 10ML CUP PO (09:00)
[2017-06-03] MEDS: POTASSIUM CHLORIDE 20 MEQ POWDER FOR ORAL SOLN PO (09:00)
[2017-06-03] MEDS: ATROPINE 1 MG/10 ML SYRINGE IV (09:24)
[2017-06-03] MEDS: VORICONAZOLE 200 MG/100 ML 100 ML IVPB (10:55)
[2017-06-03] MEDS: NORepinephrine 8MG/250 ML (PMX 250 ML IV (11:23)
[2017-06-03 11:25] LABS: LYMPHOCYTES # 0.6 10^3/ul (0.8-2.9); LYMPHOCYTES #M 0.6 10^3/ul (0.8-2.9); LYMPHOCYTES % (M) 86 % (15-51); MONOCYTES % (M) 2 % (0-11); SEGMENTED NEUTROPHILS (M) % 12 % (39-77)
[2017-06-03 11:26] LABS: BURR CELLS OCCASIONAL
[2017-06-03] MEDS ORDERED: NORepinephrine 8MG/250 ML (PMX 250 ML IV (11:30)
[2017-06-03] MEDS: GENTAMICIN 350 MG in DEXTROSE 5% 100 ML IVPB (12:02)
[2017-06-03] MEDS ORDERED: ARTIFICIAL TEARS 15 ML OPH BOTH EYES (14:30)
[2017-06-03] MEDS ORDERED: DAPTOMYCIN IVPB (15:00)
[2017-06-03] MEDS ORDERED: SOD CHLORIDE 0.9% IVPB (15:00)
[2017-06-03] MEDS: morphine (DRIP) 100 MG/100 ML 100 ML IV (15:21)
[2017-06-03] MEDS ORDERED: DIMETHICONE STICK TOP (16:00)
== END 2017-06-03 19:00 | disposition expired | DRG 870 ==
LOC: MS1 05-15 17:55 → TEL 05-19 18:31 → ICU 05-20 20:18 → E/R 23:23 → ICU 05-06 01:20
PROC: 5A1955Z Respiratory Ventilation, Greater than 96 Consecutive Hours (ICD-10-PCS; principal; 2017-05-06)
PROC: 0BH17EZ Insertion of Endotracheal Airway into Trachea, Via Natural or Artificial Opening (ICD-10-PCS; 2017-05-06)
PROC: 30233N1 Transfusion of Nonautologous Red Blood Cells into Peripheral Vein, Percutaneous Approach (ICD-10-PCS; 2017-05-06)
DX: A41.89 Other specified sepsis (principal); K72.00 Acute and subacute hepatic failure without coma; J96.00 Acute respiratory failure, unspecified whether with hypoxia or hypercapnia; R65.21 Severe sepsis with septic shock; G92 Toxic encephalopathy; E43 Unspecified severe protein-calorie malnutrition; D61.810 Antineoplastic chemotherapy induced pancytopenia; I96 Gangrene, not elsewhere classified; C92.02 Acute myeloblastic leukemia, in relapse; E87.0 Hyperosmolality and hypernatremia; E87.1 Hypo-osmolality and hyponatremia; D68.9 Coagulation defect, unspecified; Z68.1 Body mass index [BMI] 19.9 or less, adult; K56.0 Paralytic ileus; I10 Essential (primary) hypertension; D70.3 Neutropenia due to infection; R50.81 Fever presenting with conditions classified elsewhere; E87.6 Hypokalemia; E83.42 Hypomagnesemia; L97.509 Non-pressure chronic ulcer of other part of unspecified foot with unspecified severity; T44.4X5A Adverse effect of predominantly alpha-adrenoreceptor agonists, initial encounter; Y92.230 Patient room in hospital as the place of occurrence of the external cause; E11.9 Type 2 diabetes mellitus without complications; A41.81 Sepsis due to Enterococcus; R23.8 Other skin changes; L08.9 Local infection of the skin and subcutaneous tissue, unspecified; I73.9 Peripheral vascular disease, unspecified; Z66 Do not resuscitate; Z51.5 Encounter for palliative care; Z79.899 Other long term (current) drug therapy
CPT/HCPCS: 31500; 36415; 36430; 36600; 70450; 70551; 71045; 71275; 74018; 76705; 80048; 80053; 80076; 80170; 80202; 81001; 82550; 82553; 82803; 82962; 83010; 83036; 83605; 83615; 83735; 83880; 84100; 84132; 84134; 84145; 84443; 84478; 84484; 85014; 85018; 85025; 85045; 85384; 85610; 85730; 86078; 86403; 86606; 86635; 86641; 86644; 86704; 86706; 86708; 86709; 86738; 86756; 86803; 86850; 86900; 86901; 86920; 86945; 87040; 87070; 87075; 87081; 87086; 87103; 87275; 87276; 87279; 87280; 87340; 87385; 87400; 87502; 89220; 92526; 92610; 93005; 93306; 93922; 93970; 94002; 94003; 94664; 94760; 94770; 96374; 96375; 97110; 97163; 99291-25; J1940